=== PATIENT | male | born 1960 | race Caucasian/White ===

== ENCOUNTER → 2017-06-06 09:31 | Outpatient (CLI) | payer OTHER, SELFPAY ==
[2017-06-06 12:27] LABS: Hemoglobin A1c 5.6 % (4.2-6.3)
[2017-06-06 12:39] LABS: ALB/GLOB Ratio 1.1 RATIO (0.9-2.4); AST(SGOT) 22 U/L (15-37); Alanine Aminotransfer ALT/SGPT 45 U/L (16-61); Albumin, Serum 3.9 g/dL (3.2-5.0); Alkaline Phosphatase 50 U/L (45-117); Anion Gap 7 (5-15); BUN 18 mg/dL (7-18); BUN/Creat Ratio 19.3 RATIO (10-20); Calcium,Total 8.9 mg/dL (8.5-10.1); Chloride 108 mmol/L (98-107); Cholesterol 170 mg/dL (200); Creatinine, Serum 0.94 mg/dL (0.70-1.30); EST Glomerular Filtration Rate 89 mL/min (>60); Est Glom Filt Rate - Afr Amer 107 mL/min (>60); Globulin 3.6 g/dL (2.2-4.2); Glucose 96 mg/dL (70-110); High Density Lipoprotein 52 mg/dL; Potassium 4.1 mmol/L (3.5-5.1); Protein, Total 7.5 g/dL (6.4-8.2); Sodium Level 142 mmol/L (136-145); Thyroid Stim Hormone (TSH) 0.99 uIU/mL (0.358-3.74)
[2017-06-06 12:44] LABS: Microalbumin,Random Urine 7.9 mg/L (NO RANGE EST.); Microalbumin:Creatinine Ratio 10.9 mg/g CRE (<30 mg/g CRE)
== END ==
PROVIDERS: Family Provider Family Medicine; PCP Family Medicine; Visit Provider Family Medicine
DX: E88.81 Metabolic syndrome and other insulin resistance (principal); E78.2 Mixed hyperlipidemia; I10 Essential (primary) hypertension
CPT/HCPCS: 36415; 80053; 82043; 82465; 82570; 83036; 83718; 84443

== ENCOUNTER → 2017-12-05 11:11 | Outpatient (CLI) | payer OTHER, SELFPAY ==
--- NOTE | 2017-12-05 11:17 | RAD_ITS ---
STUDY: X-RAY - LUMBAR SPINE REASON FOR EXAM: Male, 57 years old. Low back pain radiating down both legs. TECHNIQUE: 5 view(s) of the lumbar spine were obtained. COMPARISON: Prior comparison studies are not available for review at this time. FINDINGS: There is an exaggerated lumbar lordosis. There is no substantial scoliosis. There is a normal alignment of the vertebrae. There is multilevel endplate spondylosis of the lumbar vertebrae. Normal disc space heights. There is no demonstrated fracture. There is multilevel degenerative arthropathy of the facet joints. There is mild anterolisthesis at L4-5. There is multilevel spondylosis of the thoracic spine. The soft tissue structures are unremarkable. RAD/L/S Spine Min 4 Views IMPRESSION: Multilevel degenerative arthropathy and spondylosis of the lumbar spine. Electronically Signed: Bronwyn Monge MD at 9:46 EDT , Service support ,
== END ==
PROVIDERS: Family Provider Family Medicine; PCP Family Medicine; Visit Provider Family Medicine
DX: M54.9 Dorsalgia, unspecified (principal)
CPT/HCPCS: 72110

== ENCOUNTER 2017-12-18 08:06 | Outpatient (RCR) | payer OTHER, SELFPAY ==
--- NOTE | 2017-12-18 08:53 | HP.PTEVAL ---
Patient's Visit Information BILLY LAGOS is a 57 year old M referred to Physical Therapy by Buddy Lara with a diagnosis of Back pain, arthritis, L4/L5 disc displacement. Date of Evaluation: 12/18/17 Physical Therapist: Thee Mckeon - Visit Plan Frequency: 2x /Week Duration: 4 Weeks Plan: Start with spinal ROM, progress with directional preferrence, once symptoms have reduced progress with neutral spine core strengthening. - Subjective Subjective: Pt. is here today for his initial evaluation with diagnosis of back pain, arthritis, adn L4/L5 disc displacement. Pt. reports having increased pain for ~1 month now. Pt. reports having central low back pain and pain in his R hip that does extend to his calf. He reports no mechanism of injury. Denies N/T, LE weakness or legs buckling. No changes in B/B. Pt. does report occassional LLE pain as well. AMs are worst, initial 3-4 hours, improves as day goes on. 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 Pt. has not trialed any exercises, but has only used advil at this point in time. Pt. is hopeful to reduce symptoms in order to walter complete all work activities without limitations. - Pain lumbar spine Pain Intensity (Out of 10): 2 Pain Intensity Range: 0, 6 RLE Pain Intensity (Out of 10): 3 Pain Intensity Range: 1, 6 - Objective POSTURE: Pt. has overall slouched posture. Pt. had rouned shoulders. Equal iliac crest heights in stance, but anterior tilted pelvis bilaterally. PALPATION: Pt. has mild tenderness at L4/L5 with spring testing, no hypomobility noted. Pt. has tenderness throught R gluteal, greatest at R piriformis, No pain throughout rest of leg. NEURO: all normal, intact. ROM: LUMBAR SPINE- flexion min loss mild increase nW, ext mod loss mild increase NW, SB R min loss increase NW, SB L nil loss NE, rotation R nil loss NE, rotation L ni loss NE. PT. has tight hamstrings bilaterally, tight piriformis bilaterally. MMT- RLE- 5/5 throughout; except hip abd 4/5, ext 4+/5. LLE-5/5 throughout; except hip abd 4/5, ext 4+/5. Core strength- poor. GAIT: Pt. has anterior tilt of his pelvis, normal step length. Pt. does have pain throughout R gluteal region with gait, R stance phase does not increase in symptoms. STAIRS: Reciprocal pattern with 1 HR without increase in symptoms. - Special Tests L/S Slump test left side: Negative L/S Slump test right side: Negative L/S Left Straight Leg Raise: Negative L/S Right Straight Leg Raise: Negative L/S Instability PA Test: Negative Lumbar Standing: Flexion - Mechanical Response: No effect Lumbar Standing: Flexion - Symptoms During Testing: Increases Lumbar Standing: Flexion - Symptoms After Testing: No worse Lumbar Standing: Extension - Mechanical Response: No effect Lumbar Standing: Extension - Symptoms During Testing: Increases Lumbar Standing: Extension - Symptoms After Testing: No worse Lumbar Standing: Right Side Glides - Mechanical Response: No effect Lumbar Standing: Right Side [place] - Symptoms During Testing: Increases Lumbar Standing: Right Side [place] - Symptoms After Testing: No worse Lumbar Standing: Left Side [place] - Mechanical Response: No effect Lumbar Standing: Left Side [place] - Symptoms During Testing: No effect Lumbar Standing: Left Side [place] - Symptoms After Testing: No effect Lumbar Lying: Flexion - Mechanical Response: No effect Lumbar Lying: Flexion - Symptoms During Testing: Decreases Lumbar Lying: Flexion - Symptoms After Testing: Better Lumbar Lying: Extension - Mechanical Response: No effect Lumbar Lying: Extension - Symptoms During Testing: Increases Lumbar Lying: Extension - Symptoms After Testing: Worse Lumbar Static: Slouched Sit - Mechanical Response: No effect Lumbar Static: Slouched Sit - Symptoms During Testing: No effect Lumbar Static: Slouched Sit - Symptoms After Testing: No effect Lumbar Static: Sitting Erect - Mechanical Response: No effect Lumbar Static: Sitting Erect - Symptoms During Testing: Increases Lumbar Static: Sitting Erect - Symptoms After Testing: No worse Lumbar Static:Lying Prone in Extension - Mechanical Response: No effect Lumbar Static: Lying Prone in Extension - Sx During Testing: Increases Lumbar Static: Lying Prone in Extension - Sx After Testing: Worse - Goals Goal 1:: Pt. to be I with HEP. Goal Time Frame: 2-4 Weeks Goal 2:: Pt. to have increased lumbar spine by 25% in all directions without increase in symptoms. Goal Time Frame: 2-4 Weeks Goal 3:: Pt. to have increased HS length by 20deg bilaterally allowing for proper pelvic positioning. Goal Time Frame: 2-4 Weeks Goal 4:: Pt. to have increased core strength by 1/2 grade to increase stability for his lumbar spine. Goal Time Frame: 2-4 Weeks Goal 5:: Pt. to complete his work day with 0-1/10 pain in lumbar spine and RLE. Goal Time Frame: 2-4 Weeks - Rehabilitation Potential Physical Therapy Diagnosis: Pt. has signs and symptoms consistent with low back pain with radiation into his RLE. Pt. appears to have a slight directional preference for flexion this date, but symptoms do suggest more discogenic pathology. Pt. would benefit from PT to increase lumbar spine mobility, increase core strenth and decrease his symptoms. Rehabilitation Potential: Good - Anticipated Interventions Patient/Client Instruction: Educate patient on: Condition, Plan of Care, Risk Factors, Benefits of Fitness Program For the Purpose of:: To improve decision making, To facilitate caregiver knowledge, To improve self management, To prevent re-injury, To improve ability to perform tasks related to life management, To improve tolerance to ADL's Therapeutic Exercise to Include: Strength training, Power training, Postural training, Flexibilty training, Gait and locomotor training, Passive ROM, Active ROM, Dynamic Lumbar Stabilization, [place] Exercises For the Purpose of:: To decrease pain, To increase ROM, To improve nutrient delivery to tissue, To increase oxygenation perfusion, To improve muscle performance and motor function, To improve health of tissue, To decrease soft tissue restriction, To increase flexibility/ROM Manual Therapy Techniques to Include: Mobilization, Passive ROM, Functional dry needling, Soft tissue mobilization For the Purpose of:: To decrease pain, To decrease swelling/inflammation, To increase ROM IF ES: Yes Cryotherapy (ice pack, ice massage): Yes Thermo therapy (hot pack): Yes Ultrasound (thermal/non thermal): Yes For the Purpose of:: To decrease pain, To decrease swelling/inflammation, To increase ROM Thank you for the opportunity to evaluate your patient. For Medicare and Medicare HMO plans, please review the plan of care and approve it. It will need to be FAXED BACK to us at [phone] for Medicare purposes. Please let me know if there are questions or concerns regarding this plan of care. Physician Signature: Date:
--- NOTE | 2018-02-26 13:52 | HP.PT.NRP ---
HP - Discharge Summary (1) - Patient Information BILLY LAGOS was seen in my office for initial evaluation on 12/18/17. The following Plan of Care was established for this patient: Initial Frequency: 2x /Week Initial Duration: 4 Weeks - Anticipated Interventions Patient/Client Instruction: Educate patient on: Condition, Plan of Care, Risk Factors, Benefits of Fitness Program For the Purpose of:: To improve decision making, To facilitate caregiver knowledge, To improve self management, To prevent re-injury, To improve ability to perform tasks related to life management, To improve tolerance to ADL's Therapeutic Exercise to Include: Strength training, Power training, Postural training, Flexibilty training, Gait and locomotor training, Passive ROM, Active ROM, Dynamic Lumbar Stabilization, [place] Exercises For the Purpose of:: To decrease pain, To increase ROM, To improve nutrient delivery to tissue, To increase oxygenation perfusion, To improve muscle performance and motor function, To improve health of tissue, To decrease soft tissue restriction, To increase flexibility/ROM Manual Therapy Techniques to Include: Mobilization, Passive ROM, Functional dry needling, Soft tissue mobilization For the Purpose of:: To decrease pain, To decrease swelling/inflammation, To increase ROM IF ES: Yes Cryotherapy (ice pack, ice massage): Yes Thermo therapy (hot pack): Yes Ultrasound (thermal/non thermal): Yes For the Purpose of:: To decrease pain, To decrease swelling/inflammation, To increase ROM This patient was last seen in our office 12/18/17. Pertinent comments regarding their Physical therapy will appear below: Pt. was seen for his low back pain with radiculopathy. Pt. was evaluated, but has not been see since. Pt. did presents with discogenic symptoms. He has not been seen in ~2 months and will be DC from PT at this point in time. At this point I will be discontinuing this patient from physical therapy. I would be happy to see this patient again in the future if found appropriate by the physician. Thank you! Thee Mckeon
== END 2017-12-18 19:00 | disposition home or self-care (01) ==
LOC: PT 08:06
PROVIDERS: Family Provider Family Medicine; PCP Family Medicine; Visit Provider Family Medicine
DX: M54.9 Dorsalgia, unspecified (principal); M19.90 Unspecified osteoarthritis, unspecified site; M51.26 Other intervertebral disc displacement, lumbar region
CPT/HCPCS: 97161

== ENCOUNTER → 2018-04-16 07:43 | Outpatient (CLI) | payer OTHER, SELFPAY ==
[2016-02-27 10:54] VITALS: BMI 32.3
[2018-04-16 10:41] LABS: Absolute Lymphocyte Count 1.62 X10^3/ul (0.83-4.51); Absolute Neutrophil Count 3.3 X10^3/uL (2.0-7.7); Basophil# 0.02 X10^3/uL; Basophil% 0.3 % (0-1); Eosinophil# 0.25 X10^3/uL; Eosinophils% 4.2 % (0-5); Lymphocyte # 1.62 X10^3/ul (4.0); Lymphocyte % 27.2 % (19-41); Mean Corp Hgb Conc 32.6 g/gl (32-36); Mean Corpuscular Hgb 30.6 pg (27.0-32.0); Mean Corpuscular Volume 93.9 fL (80-94); Mean Platelet Vol. 10.6 fl (6.2-12.0); Monocyte# 0.77 X10^3/uL; Monocyte% 12.9 % (0-10); Neutrophil # 3.28 X10^3/uL (2.7-7.7); Neutrophil % 55.1 % (47-70); Platelet Count 200 K/mm3 (150-450); RBC Distribution Width CV 12.3 % (11.6-14.6); RBC Distribution Width SD 41.9 fl (35.1-43.9)
[2018-04-16 10:49] LABS: POSITIVE COUNT NO; POSITIVE DIFFERENTIAL NO; POSITIVE MORPHOLOGY NO
[2018-04-16 11:00] LABS: AST(SGOT) 29 U/L (15-37); Alanine Aminotransfer ALT/SGPT 47 U/L (16-61); Albumin, Serum 3.6 g/dL (3.2-5.0); Alkaline Phosphatase 51 U/L (45-117); Anion Gap 9 (5-15); BUN 11 mg/dL (7-18); Calcium,Total 8.8 mg/dL (8.5-10.1); Chloride 104 mmol/L (98-107); Cholesterol 180 mg/dL (200); Creatinine, Serum 0.92 mg/dL (0.70-1.30); EST Glomerular Filtration Rate 90 mL/min (>60); Est Glom Filt Rate - Afr Amer 109 mL/min (>60); Globulin 3.5 g/dL (2.2-4.2); Glucose 96 mg/dL (74-106); High Density Lipoprotein 39 mg/dL; Protein, Total 7.1 g/dL (6.4-8.2); Sodium Level 140 mmol/L (136-145); Thyroid Stim Hormone (TSH) 1.07 uIU/mL (0.358-3.74); Triglycerides 172 mg/dL; Very Low Density Lipoprotein 34 mg/dL (5-40)
[2018-04-16 11:32] LABS: Hemoglobin A1c 6.5 % (4.2-6.3)
--- OUTSIDE RECORDS SUMMARY | 2018-06-02 00:53 | XMS RPT_ITS ---
:1960 Author Organization OHIP Care Team Providers Name Role Phone Buddy Lara Attending Unavailable Lara, Buddy Referring Unavailable Lara, Buddy Primary Care Unavailable Lara, Buddy Attending Unavailable Lara, Buddy Primary Care Unavailable Lara, Buddy Attending Unavailable Lara, Buddy Referring Unavailable Lara, Buddy Primary Care Unavailable Lara, Buddy Attending Unavailable Lara, Buddy Referring Unavailable Lara, Buddy Primary Care Unavailable PROBLEMS PROBLEMS DATE TYPE CONDITION / CODE ATTENDING STATUS SOURCE 02/27/2018 Unknown M54.9 - LaraBuddy Active [place] [facility], Community unspecified / Hospital M54.9(ICD-10) Repository PROCEDURES PROCEDURES No Procedure Records FoundRESULTS RESULTS CBC W/DIFF, AUTOMATED Collected: 04/16/2018 Status: F Source: [place] 7:48 AM [facility] Order Comment: Order Date: 12/05/17 Order Info: 0184-1 - CBCD TYPE CODE TESTS RESULT OUT OF RANGE REFERENCE UNITS LAB L100.1000 4.4-11.0 K/mm3 Normal WBC 6.0 LAB L100.1200 4.6-6.2 M/mm3 Normal RBC 4.90 LAB L100.1300 13.0-16.5 g/dl Normal HGB 15.0 LAB L100.1400 40-54 % Normal HCT 46.0 LAB L100.1500 80-94 fL Normal MCV 93.9 LAB L100.1600 27.0-32.0 pg Normal MCH 30.6 LAB L100.1700 32-36 g/gl Normal MCHC 32.6 LAB L100.1810 11.6-14.6 % Normal RDW CV 12.3 LAB L100.1820 35.1-43.9 fl Normal RDW SD 41.9 LAB L100.1900 150-450 K/mm3 Normal PLT 200 LAB L100.2000 6.2-12.0 fl Normal MPV 10.6 LAB L100.2100 47-70 % Normal NEUT% 55.1 LAB L100.2200 19-41 % Normal LY% 27.2 LAB L100.2300 0-10 % High MONO% 12.9 LAB L100.2400 0-5 % Normal EO% 4.2 LAB L100.2500 0-1 % Normal BASO% 0.3 LAB L100.2550 0.0-0.9 % Normal IM GRAN % 0.300 Result Comment: IG% - Immature Granulocytes (promyelocytes, myelocytes and metamyelocytes) > 1% indicates that a LEFT SHIFT is Present. LAB L100.2620 2.0-7.7 X10 3/uL Normal Absolute Neut 3.3 LAB L100.2720 0.83-4.51 X10 3/ul Normal Absolute Lymph 1.62 Performed By: #### L100.0100, L500.4050, L500.4100, L501.9520, L501.9985 #### [facility] [address] [place], [place], [address] COMPREHENSIVE METABOLIC Collected: 04/16/2018 Status: F Source: MOOSE CHOUDHARY 7:48 AM [facility] Order Comment: Order Date: 12/05/17 Order Info: 0786-1 - CMP Order Info: [id number] - LIPID Order Info: 3016-3 - TSH TYPE CODE TESTS RESULT OUT OF RANGE REFERENCE UNITS LAB L501.0100 74-106 mg/dL Normal GLU 96 Result Comment: Please note revised GLUCOSE reference range effective 2017. LAB L501.1000 7-18 mg/dL Normal BUN 11 LAB L501.1100 0.70-1.30 mg/dL Normal CREAT,SERUM 0.92 Result Comment: The validity of the calculated GFR AND GFRAA in patients over 70 years has not been determined. Clinical correlation is essential. LAB L501.1110 >60 mL/min Normal EST GFR 90 Result Comment: Non- GFR Calc LAB L501.1115 >60 mL/min Normal EST GFR - AA 109 Result Comment: GFR Calc LAB L501.1300 10-20 RATIO Normal BUN/CRE 12.0 LAB L501.1500 6.4-8.2 g/dL T Normal PROT 7.1 LAB L501.1800 3.2-5.0 g/dL Normal ALB 3.6 LAB L501.1950 2.2-4.2 g/dL Normal GLOB 3.5 LAB L501.2000 0.9-2.4 RATIO Normal A/G 1.0 LAB L501.2200 8.5-10.1 mg/dL CA Normal 8.8 LAB L501.4100 15-37 U/L Normal AST 29 LAB L501.4305 45-117 U/L Normal ALK P 51 LAB L501.4405 16-61 U/L Normal ALT 47 LAB L501.4600 0.20-1.00 mg/dL T Normal BILI 0.40 LAB L501.5300 136-145 mmol/L NA Normal 140 LAB L501.5600 3.5-5.1 mmol/L K Normal 4.0 LAB L501.5900 98-107 mmol/L CL Normal 104 LAB L501.6100 21.0-32.0 mmol/L Normal CO2 27.0 LAB L501.6200 5-15 Normal GAP 9 Performed By: #### L100.0100, L500.4050, L500.4100, L501.9520, L501.9985 #### [facility] [address] [place], [place], [id number] LIPID PROFILE Collected: 04/16/2018 Status: F Source: [place]OO[place] 7:48 AM [facility] Order Comment: Order Date: 12/05/17 Order Info: 0786-1 - CMP Order Info: [id number] - LIPID Order Info: 3016-3 - TSH TYPE CODE TESTS RESULT OUT OF RANGE REFERENCE UNITS LAB L501.4900 200 mg/dL Normal CHOL 180 Result Comment: <200 mg/dL Desirable 200-240 mg/dL Borderline >240 mg/dL High Risk LAB L501.5000 mg/dL Normal TRIG 172 Result Comment: The drugs N-Acetylcysteine and Metamizole may falsely depress this assay. Serum Triglycerides Reference Interval Normal <150 mg/dL Borderline high 150 - 199 mg/dL High 200 - 499 mg/dL Very High > or = 500 mg/dL LAB L501.6400 mg/dL Low HDL 39 Result Comment: The drugs N-Acetylcysteine and Metamizole may falsely depress this assay. Reference Range HDL <40 mg/dL Low HDL Cholesterol HDL >or= 60 mg/dL High HDL Cholesterol LAB L501.6500 0-130 mg/dL Normal LDL 107 LAB L501.6600 5-40 mg/dL Normal VLDL 34 Performed By: #### L100.0100, L500.4050, L500.4100, L501.9520, L501.9985 #### [facility] [address] [place], [place], [id number] THYROID STIM HORMONE Collected: 04/16/2018 Status: F Source: MOOSE (TSH) 7:48 AM [facility] Order Comment: Order Date: 12/05/17 Order Info: 0786-1 - CMP Order Info: [id number] - LIPID Order Info: 3016-3 - TSH TYPE CODE TESTS RESULT OUT OF RANGE REFERENCE UNITS LAB L501.9520 0.358-3.74 uIU/mL Normal TSH 1.07 Performed By: #### L100.0100, L500.4050, L500.4100, L501.9520, L501.9985 #### [facility] [address] [place], [place], [address] HEMOGLOBIN A1C Collected: 04/16/2018 Status: F Source: [place]OO[place] 7:48 AM [facility] Order Comment: Order Date: 12/05/17 Order Info: 4548-4 - A1C TYPE CODE TESTS RESULT OUT OF RANGE REFERENCE UNITS LAB L501.9985 4.2-6.3 % High HGB A1C 6.5 Performed By: #### L100.0100, L500.4050, L500.4100, L501.9520, L501.9985 #### [facility] [address] [place], [address] INITAL EVALUATION (1) Observed: 12/18/2017 Status: F Source: MOOSE - PT 8:54 AM [facility] Physical Therapy [facility] [address] [place], [place] [address] Fax REHABILITATION SERVICES INITIAL EVALUATION MR#: [id number] Acct: [id number] Name: VÍCTOR LAGOS Rep #: [id number] : 1960 57 From: Thee Mckeon DPT Referring Dr.: Buddy Lara MD Status: REG RCR Insurance: [employer] [facility] SELF PAY INSURANCE Patient's Visit Information VÍCTOR LAGOS is a 57 year old M referred to Physical Therapy by Buddy Lara with a diagnosis of Back pain, arthritis, L4/L5 disc displacement. Date of Evaluation: 12/18/17 Physical Therapist: Thee Mckeon - Visit Plan Frequency: 2x /Week Duration: 4 Weeks Plan: Start with spinal ROM, progress with directional preferrence, once symptoms have reduced progress with neutral spine core strengthening. - Subjective Subjective: Pt. is here today for his initial evaluation with diagnosis of back pain, arthritis, adn L4/L5 disc displacement. Pt. reports having increased pain for 1 month now. Pt. reports having central low back pain and pain in his R hip that does extend to his calf. He reports no mechanism of injury. Denies N/T, LE weakness or legs buckling. No changes in B/B. Pt. does report occassional LLE pain as well. AMs are worst, initial 3-4 hours, improves as day goes on. 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 Pt. has not trialed any exercises, but has only used advil at this point in time. Pt. is hopeful to reduce symptoms in order to walter complete all work activities without limitations. - Pain lumbar spine Pain Intensity (Out of 10): 2 Pain Intensity Range: 0, 6 RLE Pain Intensity (Out of 10): 3 Pain Intensity Range: 1, 6 - Objective POSTURE: Pt. has overall slouched posture. Pt. had rouned shoulders. Equal iliac crest heights in stance, but anterior tilted pelvis bilaterally. PALPATION: Pt. has mild tenderness at L4/L5 with spring testing, no hypomobility noted. Pt. has tenderness throught R gluteal, greatest at R piriformis, No pain throughout rest of leg. NEURO: all normal, intact. ROM: LUMBAR SPINE- flexion min loss mild increase nW, ext mod loss mild increase NW, SB R min loss increase NW, SB L nil loss NE, rotation R nil loss NE, rotation L ni loss NE. PT. has tight hamstrings bilaterally, tight piriformis bilaterally. MMT- RLE- 5/5 throughout; except hip abd 4/5, ext 4+/5. LLE-5/5 throughout; except hip abd 4/5, ext 4+/5. Core strength- poor. GAIT: Pt. has anterior tilt of his pelvis, normal step length. Pt. does have pain throughout R gluteal region with gait, R stance phase does not increase in symptoms. STAIRS: Reciprocal pattern with 1 HR without increase in symptoms. - Special Tests L/S Slump test left side: Negative L/S Slump test right side: Negative L/S Left Straight Leg Raise: Negative L/S Right Straight Leg Raise: Negative L/S Instability PA Test: Negative Lumbar Standing: Flexion - Mechanical Response: No effect Lumbar Standing: Flexion - Symptoms During Testing: Increases Lumbar Standing: Flexion - Symptoms After Testing: No worse Lumbar Standing: Extension - Mechanical Response: No effect Lumbar Standing: Extension - Symptoms During Testing: Increases Lumbar Standing: Extension - Symptoms After Testing: No worse Lumbar Standing: Right Side Glides - Mechanical Response: No effect Lumbar Standing: Right Side Wayan - Symptoms During Testing: Increases Lumbar Standing: Right Side Wayan - Symptoms After Testing: No worse Lumbar Standing: Left Side Wayan - Mechanical Response: No effect Lumbar Standing: Left Side Wayan - Symptoms During Testing: No effect Lumbar Standing: Left Side Wayan - Symptoms After Testing: No effect Lumbar Lying: Flexion - Mechanical Response: No effect Lumbar Lying: Flexion - Symptoms During Testing: Decreases Lumbar Lying: Flexion - Symptoms After Testing: Better Lumbar Lying: Extension - Mechanical Response: No effect Lumbar Lying: Extension - Symptoms During Testing: Increases Lumbar Lying: Extension - Symptoms After Testing: Worse Lumbar Static: Slouched Sit - Mechanical Response: No effect Lumbar Static: Slouched Sit - Symptoms During Testing: No effect Lumbar Static: Slouched Sit - Symptoms After Testing: No effect Lumbar Static: Sitting Erect - Mechanical Response: No effect Lumbar Static: Sitting Erect - Symptoms During Testing: Increases Lumbar Static: Sitting Erect - Symptoms After Testing: No worse Lumbar Static:Lying Prone in Extension - Mechanical Response: No effect Lumbar Static: Lying Prone in Extension - Sx During Testing: Increases Lumbar Static: Lying Prone in Extension - Sx After Testing: Worse - Goals Goal 1:: Pt. to be I with HEP. Goal Time Frame: 2-4 Weeks Goal 2:: Pt. to have increased lumbar spine by 25% in all directions without increase in symptoms. Goal Time Frame: 2-4 Weeks Goal 3:: Pt. to have increased HS length by 20deg bilaterally allowing for proper pelvic positioning. Goal Time Frame: 2-4 Weeks Goal 4:: Pt. to have increased core strength by 1/2 grade to increase stability for his lumbar spine. Goal Time Frame: 2-4 Weeks Goal 5:: Pt. to complete his work day with 0-1/10 pain in lumbar spine and RLE. Goal Time Frame: 2-4 Weeks - Rehabilitation Potential Physical Therapy Diagnosis: Pt. has signs and symptoms consistent with low back pain with radiation into his RLE. Pt. appears to have a slight directional preference for flexion this date, but symptoms do suggest more discogenic pathology. Pt. would benefit from PT to increase lumbar spine mobility, increase core strenth and decrease his symptoms. Rehabilitation Potential: Good - Anticipated Interventions Patient/Client Instruction: Educate patient on: Condition, Plan of Care, Risk Factors, Benefits of Fitness Program For the Purpose of:: To improve decision making, To facilitate caregiver knowledge, To improve self management, To prevent re-injury, To improve ability to perform tasks related to life management, To improve tolerance to ADL's Therapeutic Exercise to Include: Strength training, Power training, Postural training, Flexibilty training, Gait and locomotor training, Passive ROM, Active ROM, Dynamic Lumbar Stabilization, [place] Exercises For the Purpose of:: To decrease pain, To increase ROM, To improve nutrient delivery to tissue, To increase oxygenation perfusion, To improve muscle performance and motor function, To improve health of tissue, To decrease soft tissue restriction, To increase flexibility/ROM Manual Therapy Techniques to Include: Mobilization, Passive ROM, Functional dry needling, Soft tissue mobilization For the Purpose of:: To decrease pain, To decrease swelling/inflammation, To increase ROM IF ES: Yes Cryotherapy (ice pack, ice massage): Yes Thermo therapy (hot pack): Yes Ultrasound (thermal/non thermal): Yes For the Purpose of:: To decrease pain, To decrease swelling/inflammation, To increase ROM Thank you for the opportunity to evaluate your patient. For Medicare and Medicare HMO plans, please review the plan of care and approve it. It will need to be FAXED BACK to us at [phone] for Medicare purposes. Please let me know if there are questions or concerns regarding this plan of care. Physician Signature: Date: <Electronically signed by Thee Mckeon DPT> 12/18/17 0854 CC: Buddy Lara MD CLS Signed For Medicare only, by signing this I certify the plan of care. Physicians Signature Date L/S SPINE MIN 4 Observed: 12/05/2017 Status: F Source: MOOSE VIEWS 11:18 AM [facility] Imaging Services [address] [place] [address] L/S Spine Min 4 Views MR#: [id number] Acct: [id number] Name: VÍCTOR LAGOS Rep #: [id number] : 1960 M 57 From: Bronwyn Monge MD PCP: Buddy Lara MD Status: REG CLI Study: L/S Spine Min 4 Views Date of Exam: 12/05/17 Exam# [id number] Ordering Dr: Buddy Lara MD STUDY: X-RAY - LUMBAR SPINE REASON FOR EXAM: Male, 57 years old. Low back pain radiating down both legs. TECHNIQUE: 5 view(s) of the lumbar spine were obtained. COMPARISON: Prior comparison studies are not available for review at this time. FINDINGS: There is an exaggerated lumbar lordosis. There is no substantial scoliosis. There is a normal alignment of the vertebrae. There is multilevel endplate spondylosis of the lumbar vertebrae. Normal disc space heights. There is no demonstrated fracture. There is multilevel degenerative arthropathy of the facet joints. There is mild anterolisthesis at L4-5. There is multilevel spondylosis of the thoracic spine. The soft tissue structures are unremarkable. RAD/L/S Spine Min 4 Views IMPRESSION: Multilevel degenerative arthropathy and spondylosis of the lumbar spine. Electronically Signed: Bronwyn Monge MD at 9:46 EDT , Service support , CC: Buddy Lara MD Work Adjustment Instructor: Signed HEMOGLOBIN A1C Collected: 06/06/2017 Status: F Source: [place] 9:32 AM [facility] Order Comment: Order Date: 06/06/17 Order Info: 4548-4 - A1C TYPE CODE TESTS RESULT OUT OF RANGE REFERENCE UNITS LAB L501.9985 4.2-6.3 % Normal HGB A1C 5.6 Performed By: #### L501.9985, L500.4050, L501.4900, L501.6400, L501.9520, L502.0250 #### [facility] [address] [place], [address] COMPREHENSIVE METABOLIC Collected: 06/06/2017 Status: F Source: MOOSE PROFIL 9:32 AM [facility] Order Comment: Order Date: 06/06/17 Order Info: 0786-1 - CMP Order Info: 3-3 - CHOL Order Info: 9 - HDL Order Info: 3016-3 - TSH TYPE CODE TESTS RESULT OUT OF RANGE REFERENCE UNITS LAB L501.0100 70-110 mg/dL Normal GLU 96 LAB L501.1000 7-18 mg/dL Normal BUN 18 LAB L501.1100 0.70-1.30 mg/dL Normal 0.94 CREAT,SERUM Result Comment: The validity of the calculated GFR AND GFRAA in patients over 70 years has not been determined. Clinical correlation is essential. LAB L501.1110 >60 mL/min Normal EST GFR 89 Result Comment: Non- GFR Calc LAB L501.1115 >60 mL/min Normal EST GFR - AA 107 Result Comment: GFR Calc LAB L501.1300 10-20 RATIO Normal BUN/CRE 19.3 LAB L501.1500 6.4-8.2 g/dL T Normal PROT 7.5 LAB L501.1800 3.2-5.0 g/dL Normal ALB 3.9 LAB L501.1950 2.2-4.2 g/dL Normal GLOB 3.6 LAB L501.2000 0.9-2.4 RATIO Normal A/G 1.1 LAB L501.2200 8.5-10.1 mg/dL CA Normal 8.9 LAB L501.4100 15-37 U/L Normal AST 22 LAB L501.4305 45-117 U/L Normal ALK P 50 LAB L501.4405 16-61 U/L Normal ALT 45 Result Comment: Please note revised ALT reference range effective 2017. LAB L501.4600 0.20-1.00 mg/dL Normal T BILI 0.30 LAB L501.5300 136-145 mmol/L Normal NA 142 LAB L501.5600 3.5-5.1 mmol/L Normal K 4.1 LAB L501.5900 98-107 mmol/L High CL 108 LAB L501.6100 21.0-32.0 mmol/L Normal CO2 27.0 LAB L501.6200 5-15 Normal GAP 7 Performed By: #### L501.9985, L500.4050, L501.4900, L501.6400, L501.9520, L502.0250 #### [facility] [address] [place], [place], [address] CHOLESTEROL Collected: 06/06/2017 Status: F Source: MOOSE 9:32 AM [facility] Order Comment: Order Date: 06/06/17 Order Info: 785-1 - CMP Order Info: 2092-07 - CHOL Order Info: 2085-01 - HDL Order Info: 3015-07 - TSH TYPE CODE TESTS RESULT OUT OF RANGE REFERENCE UNITS LAB L501.4900 200 mg/dL Normal CHOL 170 Result Comment: <200 mg/dL Desirable 200-240 mg/dL Borderline >240 mg/dL High Risk Performed By: #### L501.9985, L500.4050, L501.4900, L501.6400, L501.9520, L502.0250 #### [facility] [address] [place], [place], [address] HIGH DENSITY Collected: 06/06/2017 Status: F Source: MOOSE LIPOPROTEIN 9:32 AM [facility] Order Comment: Order Date: 06/06/17 Order Info: 785-05 - CMP Order Info: 2092-07 - CHOL Order Info: 2085-01 - HDL Order Info: 3015-07 - TSH TYPE CODE TESTS RESULT OUT OF RANGE REFERENCE UNITS LAB L501.6400 mg/dL Normal HDL 52 Result Comment: The drugs N-Acetylcysteine and Metamizole may falsely depress this assay. Reference Range HDL <40 mg/dL Low HDL Cholesterol HDL >or= 60 mg/dL High HDL Cholesterol Performed By: #### L501.9985, L500.4050, L501.4900, L501.6400, L501.9520, L502.0250 #### [facility] [address] [place], [address] THYROID STIM HORMONE Collected: 06/06/2017 Status: F Source: MOOSE (TSH) 9:32 AM [facility] Order Comment: Order Date: 06/06/17 Order Info: 785-1 - CMP Order Info: 2092-07 - CHOL Order Info: 2085-01 - HDL Order Info: 3016-3 - TSH TYPE CODE TESTS RESULT OUT OF RANGE REFERENCE UNITS LAB L501.9520 0.358-3.74 uIU/mL Normal TSH 0.99 Performed By: #### L501.9985, L500.4050, L501.4900, L501.6400, L501.9520, L502.0250 #### [facility] [address] [place], [place], [address] MICROALB:CREAT Collected: 06/06/2017 Status: F [facility] 9:32 AM [facility] Order Comment: Order Date: 06/06/17 Order Info: 0779-1 - MIACRE TYPE CODE TESTS RESULT OUT OF RANGE REFERENCE UNITS LAB L501.1200 NO RANGE EST. mg/dL Normal UR CREAT 72.80 LAB L502.0500 NO RANGE EST. mg/L Normal 7.9 MICROALBUMIN ,UR LAB L502.0600 <30 mg/g CRE mg/g CRE Normal 10.9 MALB:CREAT Performed By: #### L501.9985, L500.4050, L501.4900, L501.6400, L501.9520, L502.0250 #### [facility] [address] [place], [address] ALLERGIES ALLERGIES DATE TYPE / CODE NAME / CODE REACTION SEVERITY SOURCE 02/21/2016 Drug No Known Unknown [facility] Allergy/4160 Allergies/F00 Hospital 33936(SNOMED [id number](RXNOR Repository CT) M) ENCOUNTERS ENCOUNTERS ADMIT/DISCHARGE ACCOUNT ADMITTING ENCOUNTER LOCATION SOURCE NUMBER [facility] 04/16/2018 [id number] Ambulatory [facility] ing:MTLAB Repository 12/18/2017/ [id number] Ambulatory [address] ing:PT Repository 12/05/2017 [id number] Ambulatory [address] ing:MTRAD Repository 06/06/2017 [id number] Ambulatory [address] ing:MFPLAB Repository PAYERS PAYERS ENCOUNTER GUARANTOR PAYER SUBSCRIBER SOURCE 04/16/2018 VÍCTOR L Primary VÍCTOR L [place] [id number] Insurance:MEDICAL THOMASDOB: [facility] [id number] Number: Repository [id number]: 330 [id number] [phone] (HP) Date:[id number] [address]WL: 04/16/2018 Secondary NOT GIVENUNK [place] Insurance:SELF PAY [facility] Number: Effective Repository Date:2018-04-16 12/18/2017 Víctor L Primary Víctor L Gay [id number] Insurance:MEDICAL ThomasDOB: [place] [address]-03-[address], [place] Number: Repository [address]Trm: 330 [id number] [phone] (HP) Date:[id number] [place] [id number]: 12/18/2017 Secondary NOT GIVENUNK [place] Insurance:SELF PAY [facility] Number: Effective Repository Date:2017-12-09 12/05/2017 Víctor L Primary Víctor L Gay [id number] Insurance:MEDICAL ThomasDOB: [place] [address]-03-[address], [place] Number: Repository [id number]: 330 [id number] [phone] () Date:[id number] [address]YE: 12/05/2017 Secondary NOT GIVENUNK Gay Insurance:SELF PAY [facility] Number: Effective Repository Date:2017-12-05 06/06/2017 Víctor L Primary Víctor L Gay [id number] Insurance:MEDICAL ThomasDOB: [place] [address] [place] [address] Number: Repository [id number]: 330 [id number] [phone] (HP) Date:[id number] [address]KR: 06/06/2017 Secondary NOT GIVENUNK [place] Insurance[facility]LF [facility]: Effective Repository Date:2017-06-06
== END ==
PROVIDERS: Family Provider Family Medicine; PCP Family Medicine; Referring Provider Family Medicine; Visit Provider Family Medicine
DX: E88.81 Metabolic syndrome and other insulin resistance (principal); Z72.0 Tobacco use
CPT/HCPCS: 36415; 80053; 80061; 83036; 84443; 85025

== ENCOUNTER → 2019-07-15 08:04 | Outpatient (CLI) | payer OTHER, SELFPAY ==
[2019-07-15 10:26] LABS: ALB/GLOB Ratio 1.2 RATIO (0.9-2.4); AST(SGOT) 24 U/L (15-37); Alanine Aminotransfer ALT/SGPT 50 U/L (16-61); Albumin, Serum 3.8 g/dL (3.2-5.0); Alkaline Phosphatase 55 U/L (45-117); Anion Gap 8 (5-15); BUN 15 mg/dL (7-18); BUN/Creat Ratio 19.2 RATIO (10-20); Calcium,Total 9.1 mg/dL (8.5-10.1); Chloride 104 mmol/L (98-107); Cholesterol 180 mg/dL (200); Creatinine, Serum 0.78 mg/dL (0.70-1.30); EST Glomerular Filtration Rate 108 mL/min (>60); Est Glom Filt Rate - Afr Amer 130 mL/min (>60); Globulin 3.1 g/dL (2.2-4.2); Glucose 107 mg/dL (74-106); High Density Lipoprotein 31 mg/dL; Protein, Total 6.9 g/dL (6.4-8.2); Sodium Level 139 mmol/L (136-145); Triglycerides 305 mg/dL; Very Low Density Lipoprotein 61 mg/dL (5-40)
[2019-07-15 10:37] LABS: Microalbumin,Random Urine < 5.0 mg/L (NO RANGE EST.)
== END ==
PROVIDERS: PCP Family Medicine; Referring Provider Family Medicine; Visit Provider Family Medicine
DX: E88.81 Metabolic syndrome and other insulin resistance (principal); I10 Essential (primary) hypertension
CPT/HCPCS: 36415; 80053; 80061; 82043; 82570

== ENCOUNTER → 2020-02-10 07:16 | Outpatient (CLI) | payer OTHER, SELFPAY ==
[2016-02-27 10:54] VITALS: BMI 32.3
[2020-02-10 09:57] LABS: Absolute Lymphocyte Count 2.15 X10^3/uL (0.83-4.51); Absolute Neutrophil Count 3.7 X10^3/uL (2.0-7.7); Basophil# 0.03 X10^3/uL; Basophil% 0.4 % (0-1); Eosinophil# 0.29 X10^3/uL; Hematocrit 48.8 % (40-54); Hemoglobin 15.9 g/dL (13.0-16.5); Lymphocyte # 2.15 X10^3/ul (4.0); Lymphocyte % 29.7 % (19-41); Mean Corp Hgb Conc 32.6 g/dL (32-36); Mean Corpuscular Hgb 31.2 pg (27.0-32.0); Mean Corpuscular Volume 95.9 fL (80-94); Monocyte# 1.02 X10^3/uL; Monocyte% 14.1 % (0-10); NRBC Flagged by Analyzer 0 % (0-5); Neutrophil % 51.2 % (47-70); Platelet Count 179 K/mm3 (150-450); RBC Distribution Width CV 12.4 % (11.6-14.6); RBC Distribution Width SD 43.9 fl (35.1-43.9); Red Blood Count 5.09 M/mm3 (4.6-6.2); White Blood Count 7.2 K/mm3 (4.4-11.0)
[2020-02-10 10:11] LABS: Vitamin D,25 Hydroxy 28.2 ng/mL
[2020-02-10 10:14] LABS: Hemoglobin A1c 6.1 % (3.8-5.6)
[2020-02-10 10:19] LABS: ALB/GLOB Ratio 1.1 RATIO (0.9-2.4); AST(SGOT) 24 U/L (15-37); Alanine Aminotransfer ALT/SGPT 48 U/L (16-61); Albumin, Serum 3.8 g/dL (3.2-5.0); Alkaline Phosphatase 48 U/L (45-117); Anion Gap 7 (5-15); BUN 14 mg/dL (7-18); BUN/Creat Ratio 16.1 RATIO (10-20); Chloride 103 mmol/L (98-107); Cholesterol 172 mg/dL (200); Creatinine, Serum 0.87 mg/dL (0.70-1.30); EST Glomerular Filtration Rate 96 mL/min (>60); Est Glom Filt Rate - Afr Amer 116 mL/min (>60); Ferritin 271 ng/mL (26-388); Globulin 3.5 g/dL (2.2-4.2); Glucose 103 mg/dL (74-106); High Density Lipoprotein 45 mg/dL; Iron 121 ug/dL (65-175); Iron Binding Capacity,Total 323 ug/dL (250-450); Potassium 3.7 mmol/L (3.5-5.1); Protein, Total 7.3 g/dL (6.4-8.2); Sodium Level 137 mmol/L (136-145); Triglycerides 153 mg/dL; Very Low Density Lipoprotein 31 mg/dL (5-40)
[2020-02-10 10:36] LABS: Microalbumin,Random Urine < 5.0 mg/L (NO RANGE EST.)
== END ==
PROVIDERS: PCP Family Medicine; Referring Provider Family Medicine; Visit Provider Family Medicine
DX: E11.9 Type 2 diabetes mellitus without complications (principal); M25.50 Pain in unspecified joint
CPT/HCPCS: 36415; 80053; 80061; 82043; 82306; 82570; 82728; 83036; 83540; 83550; 85025

== ENCOUNTER → 2020-10-07 09:49 | Outpatient (CLI) | payer OTHER, SELFPAY ==
[2016-02-27 10:54] VITALS: BMI 32.3
--- NOTE | 2020-10-07 10:04 | RAD_ITS ---
STUDY: X-RAY - LUMBOSACRAL SPINE REASON FOR EXAM: Male, 60 years old. RLE radiculolpathy w/o weakness TECHNIQUE: 7 view(s) of the lumbosacral spine were obtained. COMPARISON: 12/05/2017 FINDINGS: Normal lumbar lordosis. There is no substantial scoliosis. 2 mm of anterolisthesis of L4 on L5 which increases to 5 mm on the flexion and extension views consistent with instability. Normal vertebral bodies and endplates. Focal disc space narrowing and osteophyte formation at L1/L2 consistent with degenerative disc disease. Normal bilateral sacral ala, sacroiliac joints, and visualized sacrum. Normal visualized soft tissue structures. RAD/L/S Spine w Bend Min 6 Vw IMPRESSION: Degenerative disc disease with instability at L4/L5 as described above. Electronically Signed: Iraj Meadows MD at 11:42 EDT Tel , Service support ,
--- NOTE | 2020-10-07 10:04 | CT_ITS ---
STUDY: LOW DOSE CT LUNG CANCER SCREENING REASON FOR EXAM: Male, 60 years old. TOBACCO ABUSE RADIATION DOSAGE (If Supplied By Facility): CTDIvol = ( 4.02 ) mGy, DLP = ( 145.97 ) mGycm TECHNIQUE: No contrast was administered. Low dose technique was utilized (average mAS-38 and kVp 120). 1.25 mm axial source images with a slice interval of 1.25-mm were reconstructed in lung windows. 2.5 mm axial source images with a slice interval of 2.5-mm were reconstructed in lung windows. 5.0 mm axial source images with a slice interval of 5.0-mm were reconstructed in soft tissue windows. Nodule measured using lung windows on PACS and/or independent workstation with automated measurement of minimum and maximum diameter. Nodule measurement reported as average diameter rounded to the nearest whole number. Growth is defined as an increase ins size of greater than 1.5 mm. COMPARISON: None. NODULES: Total lung nodules (excluding granulomas): 0 Emphysema: Minor upper lobe predominant Endobronchial lesion: None Aorta: Nondilated. Coronary arteries: Mild coronary artery atherosclerosis Heart: Normal size. Mitral valve calcifications. Pulmonary artery: Unremarkable for unopacified technique Mediastinal nodes: No mediastinal adenopathy. Other chest and abdominal findings: None significant CT/Low Dose CT Lung Screening IMPRESSION: Lung-RADS category 1 - Continue annual screening with LDCT in 12 months. IMPORTANT NOTES FOR USE: ACR Lung-RADS Version 1.1 Assessment Categories Release Date: 2018 Category: Coded 0-4 bases on nodule(s) with highest degree of suspicion. Negative screen is defined as categories 1 and 2; a positive screen is defined as categories 3 and 4. Category 3 and 4A nodules that are unchanged on interval CT should be coded as category 2, and individuals returned to screening in 12 months. Category 4X: Category 3 or 4 nodules with additional imaging findings that increase the suspicion of lung cancer, such as spiculation, GGN that doubles in size in 1 year, enlarged lymph notes, etc. Category Modifiers: S (significant finding unrelated to lung cancer) Electronically Signed: Robert Gleason MD ([place]) at 17:48 EDT , Service support ,
== END ==
PROVIDERS: PCP Family Medicine; Referring Provider Family Medicine; Visit Provider Family Medicine
DX: M54.9 Dorsalgia, unspecified (principal); Z72.0 Tobacco use
CPT/HCPCS: 71271; 72114

== ENCOUNTER → 2020-10-26 06:35 | Outpatient (CLI) | payer OTHER, SELFPAY ==
[2020-10-20 09:05] VITALS: BMI 32.3
--- NOTE | 2020-10-26 06:36 | MRI_ITS ---
STUDY: MRI LUMBAR SPINE WITHOUT CONTRAST REASON FOR EXAM: Male, 60 years old. pain, spondylolisthesis TECHNIQUE: Standardized fat and water weighted pulse sequences were obtained in the sagittal and axial planes. COMPARISON: None FINDINGS: The vertebral bodies are of normal height and alignment with normal bone marrow signal intensity. There is narrowing and dehydration of the disc at the level of T12-L1. There is also narrowing of the disc at L1-2 with diffuse bulge of the annulus fibrosus. The disc at the level of L2-3 dehydrated but maintained so is the disc at the level of L3-4. At the level of L4-5 the disc is dehydrated but show diffuse bulge of the annulus fibrosus associated with marked spinal stenosis. The spinal canal measures at this level 6 mm. At the level of L5-S1 the disc is maintained but dehydrated no protrusion or extrusion at this level. There is mild hypertrophic changes involving the apophyseal joints at L4-5 and L5-S1. MRI/Spine Lumbar (Routine) IMPRESSION: Dehydrated and narrowed disc at the T12-L1 and L1-2. There is marked spinal stenosis at the level of L4-5 Electronically Signed: Bill Shi, at 10:58 EDT Tel , Service support ,
== END ==
PROVIDERS: PCP Family Medicine; Referring Provider Orthopaedic Surgery; Visit Provider Orthopaedic Surgery
DX: M43.10 Spondylolisthesis, site unspecified (principal)
CPT/HCPCS: 72148

== ENCOUNTER 2020-10-27 07:30 | Outpatient (RCR) | payer OTHER, SELFPAY ==
--- NOTE | 2020-10-19 15:00 | HP.PTEVAL_ITS ---
Patient's Visit Information BILLY LAGOS is a 60 year old M referred to Physical Therapy by Dr. Buddy Lara MD with a diagnosis of BACK PAIN. Date of Evaluation: 10/19/20 Physical Therapist: Apollo Hensley PT, Cert MDT, OCS - Visit Plan Frequency: 2x /Week Duration: 4 Weeks Plan: PT INTERVETIONS DLS,LUMBAR FLEXION,POSTURAL EX'S ,LE FLEXABLITY AND MODALTIES NEEDED - Subjective This 60 y/o male presents to physical therapy with back pain with radicular symptoms . Patient has had LBP with radicular for 3 years . Patient pain located right glut hamstring and lateral calf to foot. Patient had x-rays showed anteriorlothesis 2 mm and flexion 5 mm . Aggravating factors standing ,walking ,carrying something, bending and lifting. Alleviating factors sitting or rest. C/O parathesia/tingling in feet right. No abnormal night pain. Patient able to sleep at night . Coughing/sneezing +. Bowel/bladder -. Patient seen chiropractor. Patient has had no trauma. Patient condition affects QOL and function with ADLS and job demands. Patient goal is to decrease lumbar and right leg pain. SOCIAL: . VOCATION: [employer] - Pain Right Back Pain Intensity (Out of 10): 8 Pain Intensity Range: 10 Right Lower Extremity Pain Intensity (Out of 10): 8 Pain Intensity Range: 10 - Objective POSTURE: mild forward posture ,slight increase steppage. GAIT: reciprocal pattern mild forward posture. NEURO: c/o parathesia/tingling right leg ,reflexes L3-4,L4-5,L5-S1 1/3. PALAPTION: unremarkable. SYMMTRIES: align. MMT: quads/hams/hips/ankle 4/5,ankle 5/5. FLEXABLITY: hams mil tight ,piriformis mild tight. LUMBAR ROM: flexion min loss, extension mod loss mild pain ,side glides right mod loss pain, left min loss - Special Tests L/S Slump test left side: Negative L/S Slump test right side: Negative L/S Left Straight Leg Raise: Negative L/S Right Straight Leg Raise: Negative L/S Prone Instability Test: Positive Lumbar Standing: Flexion - Mechanical Response: No effect Lumbar Standing: Flexion - Symptoms During Testing: Increases Lumbar Standing: Flexion - Symptoms After Testing: Worse Lumbar Standing: Extension - Mechanical Response: No effect Lumbar Standing: Extension - Symptoms During Testing: Increases Lumbar Standing: Extension - Symptoms After Testing: Worse Lumbar Standing: Right Side Glides - Mechanical Response: No effect Lumbar Standing: Right Side Deford - Symptoms During Testing: Increases Lumbar Standing: Right Side Deford - Symptoms After Testing: Worse Lumbar Standing: Left Side Deford - Mechanical Response: No effect Lumbar Standing: Left Side Deford - Symptoms During Testing: No effect Lumbar Standing: Left Side Deford - Symptoms After Testing: No effect Lumbar Lying: Flexion - Mechanical Response: No effect Lumbar Lying: Flexion - Symptoms During Testing: Decreases Lumbar Lying: Flexion - Symptoms After Testing: Better - Goals Goal 1:: I with HEP. Goal Time Frame: 4-6 Weeks Goal 2:: Improve posture/body mechanics for ADLS Goal Time Frame: 4-6 Weeks Goal 3:: Decrease LBP and radicular symptoms right leg by 50% or > to improve function with walking and standing. Goal Time Frame: 4-6 Weeks Goal 4:: Patient improve lumbar ROM for function of recovery Goal Time Frame: 4-6 Weeks Goal 5:: Patient to increase back owestry score by 5 points or > to improve function. Goal Time Frame: 4-6 Weeks - Rehabilitation Potential Physical Therapy Diagnosis: This 60 y/o female presents to physical therapy with lumbar pain with radicular symptoms right leg with pain, decrease lumbar ROM ,test movements + with pain,+ anteriorlothesis with instability with flexion worse with standing and walking thus benefit from skilled PT . Rehabilitation Potential: Good - Anticipated Interventions Patient/Client Instruction: Educate patient on: Condition, Plan of Care For the Purpose of:: To decrease pain, To increase ROM, To improve muscle performance and motor function, To improve ability to perform ADL's, To increase tolerance to activity/condition/position, To improve ability of physical actions for home/community/work/leisure, To increase flexibility/ROM, To reduce risk of recurrence, To improve ability to perform tasks related to life management Therapeutic Exercise to Include: Strength training, Body mechanics, Postural training, Flexibilty training, Dynamic Lumbar Stabilization For the Purpose of:: To decrease pain, To improve muscle performance and motor function, To increase tolerance to activity/condition/position, To improve ability of physical actions for home/community/work/leisure, To improve health of tissue, To decrease soft tissue restriction, To increase flexibility/ROM, To reduce risk of recurrence, To improve ability to perform tasks related to life management TENS: Yes IF ES: Yes Cryotherapy (ice pack, ice massage): Yes Thermo therapy (hot pack): Yes Ultrasound (thermal/non thermal): Yes For the Purpose of:: To decrease pain, To decrease swelling/inflammation, To improve health of tissue, To decrease soft tissue restriction Thank you for the opportunity to evaluate your patient. For Medicare and Medicare HMO plans, please review the plan of care and approve it. It will need to be FAXED BACK to us at [phone] for Medicare purposes. For Medicare only, by signing this I certify the plan of care. Please let me know if there are questions or concerns regarding this plan of care. Physician Signature: Date:
--- NOTE | 2021-02-08 17:16 | HP.PT.NRP ---
BILLY LAGOS was seen in my office for initial evaluation on 10/19/20. The following Plan of Care was established for this patient: Initial Frequency: 2x /Week Initial Duration: 4 Weeks Patient/Client Instruction: Educate patient on: Condition, Plan of Care For the Purpose of:: To decrease pain, To increase ROM, To improve muscle performance and motor function, To improve ability to perform ADL's, To increase tolerance to activity/condition/position, To improve ability of physical actions for home/community/work/leisure, To increase flexibility/ROM, To reduce risk of recurrence, To improve ability to perform tasks related to life management Therapeutic Exercise to Include: Strength training, Body mechanics, Postural training, Flexibilty training, Dynamic Lumbar Stabilization For the Purpose of:: To decrease pain, To improve muscle performance and motor function, To increase tolerance to activity/condition/position, To improve ability of physical actions for home/community/work/leisure, To improve health of tissue, To decrease soft tissue restriction, To increase flexibility/ROM, To reduce risk of recurrence, To improve ability to perform tasks related to life management TENS: Yes IF ES: Yes Cryotherapy (ice pack, ice massage): Yes Thermo therapy (hot pack): Yes Ultrasound (thermal/non thermal): Yes For the Purpose of:: To decrease pain, To decrease swelling/inflammation, To improve health of tissue, To decrease soft tissue restriction This patient was last seen in our office . Pertinent comments regarding their Physical therapy will appear below: Patient seen for PT for back back pain. Patient had MRI showed marked stenosis from DR [place] At this point I will be discontinuing this patient from physical therapy. I would be happy to see this patient again in the future if found appropriate by the physician. Thank you! Apollo Hensley, PT, Cert MDT, OCS Balance/Gait/Functional tests - Balance/Special Test Scores Oswestry Low Back Score: 7
== END 2020-10-27 19:00 | disposition home or self-care (01) ==
LOC: PT 07:30
PROVIDERS: PCP Family Medicine; Referring Provider Family Medicine; Visit Provider Family Medicine
DX: M54.9 Dorsalgia, unspecified (principal)
CPT/HCPCS: 97110; 97162

== ENCOUNTER → 2021-10-11 | Outpatient (CLI) | payer OTHER, SELFPAY ==
[2021-10-11 12:45] LABS: Microalbumin,Random Urine 7.1 mg/L (NO RANGE EST.); Microalbumin:Creatinine Ratio 15.5 mg/g CRE (<30 mg/g CRE)
[2021-10-11 13:13] LABS: ALB/GLOB Ratio 1.3 RATIO (0.9-2.4); AST(SGOT) 24 U/L (15-37); Alanine Aminotransfer ALT/SGPT 49 U/L (16-61); Alkaline Phosphatase 50 U/L (45-117); Anion Gap 7 (5-15); BUN 16 mg/dL (7-18); BUN/Creat Ratio 18.6 RATIO (10-20); Calcium,Total 9.4 mg/dL (8.5-10.1); Chloride 105 mmol/L (98-107); Cholesterol 195 mg/dL (200); Creatinine, Serum 0.86 mg/dL (0.70-1.30); EST Glomerular Filtration Rate 96 mL/min (>60); Est Glom Filt Rate - Afr Amer 116 mL/min (>60); Globulin 3.1 g/dL (2.2-4.2); Glucose 107 mg/dL (74-106); High Density Lipoprotein 42 mg/dL; Potassium 3.7 mmol/L (3.5-5.1); Protein, Total 7.1 g/dL (6.4-8.2); Sodium Level 139 mmol/L (136-145); Triglycerides 176 mg/dL; Very Low Density Lipoprotein 35 mg/dL (5-40)
[2021-10-11 13:19] LABS: Hemoglobin A1c 5.9 % (3.8-5.6)
== END | disposition home or self-care (01) ==
LOC: MFPLAB 10:36
PROVIDERS: PCP Family Medicine; Referring Provider Family Medicine; Visit Provider Nurse Practitioner Family
DX: E88.81 Metabolic syndrome and other insulin resistance (principal); I10 Essential (primary) hypertension; E78.2 Mixed hyperlipidemia
CPT/HCPCS: 36415; 80053; 80061; 82043; 82570; 83036

== ENCOUNTER → 2021-12-13 | Outpatient (CLI) | payer OTHER, SELFPAY ==
--- NOTE | 2021-12-13 12:58 | ECHOD_ITS ---
Reason For Study: MURMUR Procedure This was a 2D Doppler, Color Flow transthoracic echocardiogram. Exam performed in department. Left Ventricle Normal LV size. The estimated ejection fraction is 70 %. No evidence for diastolic dysfunction. No regional wall motion abnormalities noted. Right Ventricle Normal RV size. Normal systolic function. Atria The left atrium is mildly enlarged. Normal right atrium. No doppler evidence for ASD. Mitral Valve There is moderate mitral annular calcification. There is no mitral valve stenosis. Trivial mitral valve insufficiency. Tricuspid Valve There is no tricuspid stenosis. Trivial tricuspid valve insufficiency. Pulmonary artery systolic pressure is 25 mmHg. Aortic Valve Mild diffuse aortic valve thickening. Mild aortic stenosis. No aortic valve insufficiency. Pulmonic Valve There is no pulmonic valvular stenosis. No pulmonic valve insufficiency. Great Vessels Normal aortic root. Pericardium/Pleural No pericardial effusion. MMode/2D Measurements & Calculations LVIDd: 4.7 cm IVSd: 1.1 cm LAV(MOD-bp): 94.8 ml LVIDs: 2.8 cm LVPWd: 1.8 cm LAV(MOD-bp) Indexed: 38.4 ml/m2 RVDd: 4.1 cm FS: 39.5 % LAV(MOD-sp2): 88.6 ml LAV(MOD-sp4): 94.5 ml SV(MOD-sp4): 60.5 ml SV(sp4-el): 61.9 ml LVAd ap4: 30.1 cm2 LVLd ap4: 8.7 cm EDV(MOD-sp4): 90.8 ml EDV(sp4-el): 88.2 ml LVAs ap4: 14.9 cm2 LVLs ap4: 7.1 cm ESV(MOD-sp4): 30.3 ml ESV(sp4-el): 26.3 ml EF(MOD-sp4): 66.6 % EF(sp4-el): 70.2 % LA A4 area: 27.9 cm2 RA A4 area: 23.3 cm2 Time Measurements MV dec time: 0.22 sec Doppler Measurements & Calculations MV E max miko: 97.1 cm/sec Lat Peak E' Miko: 10.5 cm/sec Med Peak E' Miko: 7.4 cm/sec MV A max miko: 95.6 cm/sec E/E' lat: 9.2 E/E' med: 13.1 MV E/A: 1.0 MV V2 max: 125.8 cm/sec MV dec slope: 435.6 cm/sec2 Ao V2 max: 245.5 cm/sec MV max P.3 mmHg Ao max P.2 mmHg MV V2 mean: 84.8 cm/sec Ao V2 mean: 175.8 cm/sec MV mean P.2 mmHg Ao mean P.3 mmHg MV V2 VTI: 35.9 cm Ao V2 VTI: 52.0 cm PA V2 max: 159.1 cm/sec ECHO/Echo Complete Interpretation Summary The estimated ejection fraction is 70 %. No evidence for diastolic dysfunction. The left atrium is mildly enlarged. Trivial mitral valve insufficiency. Mild aortic stenosis. Ordering Physician: Buddy Lara Referring Physician: Buddy Lara Performed By: Hermelinda Sanders RCS
== END | disposition home or self-care (01) ==
PROVIDERS: PCP Family Medicine; Referring Provider Family Medicine; Visit Provider Family Medicine
DX: R01.1 Cardiac murmur, unspecified (principal)
CPT/HCPCS: 93306

== ENCOUNTER 2022-02-22 07:43 | Emergency (ER) | payer OTHER, SELFPAY ==
[2022-02-22 07:44] VITALS: BP 171/99; PULSE 75; RESP 17; TEMP 36.7; O2SAT 98; BMI 37.6
--- NOTE | 2022-02-22 08:11 | ED.VIS.BACK ---
HPI History of Present Illness Chief Complaint: Back Narrative Narrative: 61-year-old male with history of back pain presenting with an acute flare of this. He states is been worse for the last couple of days. He describes it as right-sided and radiating to the gluteal region. He states he had this in the past but never this severely. He saw his primary care physician for this distantly and was also seen by a chiropractor. He states the chiropractor did not help him in the past he did not want to go back. He is using ibuprofen at home without significant relief. He states he does not want to stop taking it because he believes it might be helping. He is ambulatory but states that after about 10 minutes it starts to hurt. If he sits down it is also painful in about 10 minutes. Denies any loss of bladder or bowel control. Denies saddle anesthesia or paresthesia. No direct trauma to the back. [facility] Medical History High cholesterol Hypertension Home Medications aspirin 81 mg chewable tablet 81 mg PO DAILY@0800 02/21/16 [History Last Taken Unknown] atorvastatin 10 mg tablet 10 mg PO QHS 02/21/16 [History Last Taken Unknown] lisinopril 20 mg tablet 20 mg PO DAILY 02/21/16 [History Last Taken 02/27/16 07:00] metoprolol tartrate 25 mg tablet 25 mg PO BID 02/21/16 [History Last Taken 02/27/16 07:00] multivitamin (Daily Multiple tablet) 1 ea PO DAILY 02/21/16 [History Last Taken Unknown] ascorbate calcium (vitamin C) 500 mg tablet 500 mg PO DAILY 10/20/20 [History Last Taken Unknown] chlorthalidone 25 mg tablet 12.5 - 25 mg PO DAILY PRN hypertension 10/20/20 [History Last Taken Unknown] cholecalciferol (vitamin D3) 50 mcg (2,000 unit) capsule 50 mcg PO DAILY 10/20/20 [History Last Taken Unknown] cinnamon bark 500 mg capsule (Cinnamon) 500 mg PO DAILY 10/20/20 [History Last Taken Unknown] omega-3 fatty acids 1,000 mg capsule (Fish Oil Concentrate) 1,000 mg PO DAILY 10/20/20 [History Last Taken Unknown] prednisone 10 mg tablet 50 mg PO DAILY 5 days #25 tabs 02/22/22 [Rx Last Taken Unknown] tizanidine 4 mg capsule (Zanaflex) 4 mg PO TID #20 caps 02/22/22 [Rx Last Taken Unknown] Allergy/AdvReac Type Severity Reaction Status Date / Time adhesive tape [tape] Allergy Rash Verified 02/22/22 07:43 Family History Mother Diabetes Arthritis Father Myocardial infarction Surgical History Hammer toe History of elbow surgery History of hernia repair Social History household members: children Smoking Status: Current every day smoker tobacco type: cigarettes Electronic Cigarette Use: not used second hand exposure: No alcohol intake: current alcohol intake frequency: other details: 2-3 Drinks per day substance use type: does not use ROS ROS ED Constitutional Constitutional ED: Denies chills or fever(s) Eyes Eyes: Denies blurry vision or change in vision ENT ENT ED: Denies ear pain or rhinorrhea Cardiovascular Cardiovascular: Denies chest pain or palpitations Respiratory/Chest Respiratory/Chest: Denies dyspnea or dyspnea on exertion Gastrointestinal Gastrointestinal: Denies abdominal pain or constipation Genitourinary Genitourinary ED: Denies dysuria or hematuria Musculoskeletal Musculoskeletal: Reports back pain Integumentary Denies abscess or Abrasions Neurologic Neurologic: Denies headache(s) or paresthesias Psychiatric Psychiatric: Denies anxiety or depression EXAM Physical Exam Const Vital Signs: 02/22/22 07:44 Temperature 98.1 F Temperature Source Temporal Pulse Rate 75 Respiratory Rate 17 Blood Pressure 171/99 H Blood Pressure Mean 123 Pulse Ox 98 Oxygen Delivery Method Room Air Positive well nourished General Appearance ED: NAD; Negative for pallor HEENT Reports moist mucous membranes Eyes PERRL and EOMs intact bilaterally Resp normal respiratory effort Cardio regular rate and regular rhythm Back/Spine Back/Spine Narrative: Tenderness palpation right lumbar paraspinal musculature. No midline spinal deformity, step-off. There is tenderness in the right gluteal region as well. Extremity normal to inspection and no clubbing, cyanosis or edema Skin no rashes or lesions noted and no wounds General Skin Exam: Negative for jaundice or pallor MDM MDM MDM Narrative Medical decision making narrative: 61-year-old male with nontraumatic lumbar strain. He states he has had this in the past. States he is never had to take anything but ibuprofen for this. Denies any symptoms consistent with cauda equina syndrome. He has not had any direct trauma. I do not believe the patient needs any imaging here today. Patient started on prednisone here and will be given muscle relaxers as well for home. He was given instructions for back care. He will follow-up with his PCP to ensure resolution. Impression: 1. Lumbar strain Lab Data Attestation: I reviewed the patient's lab results. Discharge Plan Triage Chief Complaint: Back ED Provider: Fabien Camejo Dx/Rx/DC Orders Instructions: ED Back Spasm, No Trauma Prescriptions: New prednisone 10 mg tablet 50 mg PO DAILY 5 Days Qty: 25 0RF tizanidine [Zanaflex] 4 mg capsule 4 mg PO TID Qty: 20 0RF No Action chlorthalidone 25 mg tablet 12.5 - 25 mg PO DAILY PRN (Reason: hypertension) Label Comments: 1/2 to 1 Tablet daily as needed for elevated blood pressure ascorbate calcium (vitamin C) 500 mg tablet 500 mg PO DAILY cholecalciferol (vitamin D3) 50 mcg (2,000 unit) capsule 50 mcg PO DAILY omega-3 fatty acids [Fish Oil Concentrate] 1,000 mg capsule 1,000 mg PO DAILY cinnamon bark [Cinnamon] 500 mg capsule 500 mg PO DAILY multivitamin [Daily Multiple] 1 EACH tablet 1 ea PO DAILY atorvastatin 10 MG tablet 10 mg PO QHS lisinopril 20 MG tablet 20 mg PO DAILY aspirin 81 MG tablet,chewable 81 mg PO DAILY@0800 Label Comments: STOPPED FOR SURGERY metoprolol tartrate 25 MG tablet 25 mg PO BID Primary Care Provider: Buddy Lara Referrals: Buddy Lara MD [Primary Care Provider] - Disposition Disposition: Home, Self Care
[2022-02-22] MEDS: predniSONE 20 MG Tablet 60 MG PO (09:08)
[2022-02-22 09:26] VITALS: RESP 16
== END 2022-02-22 09:27 | disposition home or self-care (01) ==
PROVIDERS: Emergency Provider Student in an Organized Health Care Education/Training Program; PCP Family Medicine; Visit Provider Student in an Organized Health Care Education/Training Program
DX: S39.012A Strain of muscle, fascia and tendon of lower back, initial encounter (principal); I10 Essential (primary) hypertension; F17.210 Nicotine dependence, cigarettes, uncomplicated; E78.00 Pure hypercholesterolemia, unspecified; Z79.82 Long term (current) use of aspirin; Z79.899 Other long term (current) drug therapy; X58.XXXA Exposure to other specified factors, initial encounter
CPT/HCPCS: 99283

== ENCOUNTER → 2022-03-16 | Outpatient (CLI) | payer OTHER, SELFPAY ==
--- NOTE | 2022-03-16 06:52 | MRI_ITS ---
HISTORY: Pain down right leg x4 weeks. Injured when twisted body getting out of bed. Painful to lay down. TECHNIQUE: Multiplanar and multisequence MR images of the lumbar spine were obtained without intravenous contrast. 131 images. COMPARISON: MR 10/26/2020, XR 10/07/2020. FINDINGS: VERTEBRAE: Vertebral body heights maintained. Focal fat or hemangioma in the T12 vertebral body again seen. Mild degenerative endplate changes of L1-2. No new significant bone marrow signal abnormality. ALIGNMENT: Unchanged 2 mm retrolisthesis of L1-2 and 2 mm anterolisthesis of L4-5 . SPINAL CANAL: Normal morphology and position of the conus medullaris at L1. No gross epidural collection or ligamentous disruption. INTERVERTEBRAL DISCS: Multilevel posterior disc bulge osteophyte complexes with facet arthropathy superimposed on a developmentally narrow spinal canal. T12-L1: No significant central canal stenosis or foraminal narrowing based on the sagittal images. L1-2: Very mild central canal stenosis and bilateral foraminal narrowing, similar to prior. L2-3: Mild central canal stenosis and minimal narrowing of the bilateral foramina, similar to prior. L3-4: Moderate central canal stenosis, similar to prior. Mild left foraminal narrowing, new from prior. L4-5: Severe central canal stenosis, similar to prior. Mild right foraminal narrowing. L5-S1: Minimal narrowing of the thecal sac. No significant foraminal stenosis. SOFT TISSUES: Posterior subcutaneous edema again noted. MRI/Spine Lumbar (Routine) IMPRESSION: Multilevel degenerative disc disease superimposed on a developmentally narrow spinal canal with severe spinal canal stenosis again seen at L4-5. No acute trauma identified in the lumbar spine. Electronically Signed: Mya Suárez MD at 10:43 EST ,
== END | disposition home or self-care (01) ==
LOC: MRI 06:51
PROVIDERS: PCP Family Medicine; Visit Provider Orthopaedic Surgery
DX: M48.061 Spinal stenosis, lumbar region without neurogenic claudication (principal)
CPT/HCPCS: 72148

== ENCOUNTER 2022-05-27 07:47 | Observation (INO) | payer OTHER, SELFPAY ==
--- NOTE | 2022-05-23 07:24 | EKG12_ITS ---
Test Reason : PREOP Blood Pressure : / mmHG Vent. Rate : 078 BPM Atrial Rate : 078 BPM P-R Int : 168 ms QRS Dur : 108 ms QT Int : 388 ms P-R-T Axes : 054 -60 -02 degrees QTc Int : 442 ms Normal sinus rhythm Left anterior fascicular block Abnormal ECG Confirmed by GARRY WILDER, THALIA ([id number]), art editor KAREN IQBAL ([id number]) on 05/23/2022 1:44:04 PM Referred By: OLVIN Confirmed By:KARISHMA CASTAÑEDA MD
[2022-05-23 08:22] LABS: Absolute Lymphocyte Count 1.94 X10^3/uL (0.83-4.51); Absolute Neutrophil Count 3.9 X10^3/uL (2.0-7.7); Basophil# 0.04 X10^3/uL; Basophil% 0.6 % (0-1); Eosinophils% 4.2 % (0-5); Hematocrit 47.6 % (40-54); Hemoglobin 15.4 g/dL (13.0-16.5); Lymphocyte # 1.94 X10^3/ul (0.83-4.51); Lymphocyte % 26.9 % (19-41); Mean Corp Hgb Conc 32.4 g/dL (32-36); Mean Corpuscular Hgb 30.9 pg (27.0-32.0); Mean Corpuscular Volume 95.6 fL (80-94); Mean Platelet Vol. 10.4 fl (6.2-12.0); Monocyte# 1.03 X10^3/uL; Monocyte% 14.3 % (0-10); NRBC Flagged by Analyzer 0 % (0-5); Neutrophil # 3.85 X10^3/uL (2.7-7.7); Neutrophil % 53.3 % (47-70); Platelet Count 165 K/mm3 (150-450); RBC Distribution Width CV 13.2 % (11.6-14.6); RBC Distribution Width SD 46.5 fl (35.1-43.9); Red Blood Count 4.98 M/mm3 (4.6-6.2); White Blood Count 7.2 K/mm3 (4.4-11.0)
[2022-05-23 08:45] LABS: Microalbumin,Random Urine 23.6 mg/L (NO RANGE EST.); Microalbumin:Creatinine Ratio 20.3 mg/g CRE (<30 mg/g CRE)
[2022-05-23 08:51] LABS: Hemoglobin A1c 5.8 % (3.8-5.6)
[2022-05-23 08:52] LABS: Magnesium 1.9 mg/dL (1.6-2.6)
[2022-05-23 08:57] LABS: ALB/GLOB Ratio 1.1 RATIO (0.9-2.4); AST(SGOT) 17 U/L (15-37); Alanine Aminotransfer ALT/SGPT 36 U/L (16-61); Albumin, Serum 3.6 g/dL (3.2-5.0); Alkaline Phosphatase 46 U/L (45-117); Anion Gap 5 (5-15); BUN 15 mg/dL (7-18); BUN/Creat Ratio 17.8 RATIO (10-20); Calcium,Total 9.1 mg/dL (8.5-10.1); Chloride 108 mmol/L (98-107); Cholesterol 147 mg/dL (200); Creatinine, Serum 0.84 mg/dL (0.70-1.30); EST Glomerular Filtration Rate 98 mL/min (>60); Est Glom Filt Rate - Afr Amer 119 mL/min (>60); Globulin 3.4 g/dL (2.2-4.2); Glucose 124 mg/dL (74-106); High Density Lipoprotein 45 mg/dL; Potassium 3.9 mmol/L (3.5-5.1); Sodium Level 141 mmol/L (136-145); Triglycerides 112 mg/dL; Very Low Density Lipoprotein 22 mg/dL (5-40)
[2022-05-23 09:19] LABS: HIV - WCH Non-Reactive (Nonreactive); Hepatitis B Surface Antibody Non-Reactive; Hepatitis C Antibody Non-Reactive (Nonreactive)
--- NOTE | 2022-05-24 09:42 | PCM.HP.BLA ---
History and Physical [id number] Acct: [id number] Name:? VÍCTOR LAGOS Rep #: [id number] : 1960 ? ? Provider: Dr. Ta Washington, DO Age/Sex:? 61/M ? ? Location: [facility] [place] Status: Signed Intake Vital Signs ? 02/22/2207:44 Height 6 ft Weight: 277 lb 12.519 oz BMI 37.6 BP 171/99 H Respiration 17 Pulse 75 Temp 98.1 F Temp Source Temporal Pulse Oximetry (%) 98 Intake Visit Reasons:?LUMBER SPINE Allergies adhesive tape [tape] Allergy (Verified 02/22/22 07:43) Rash Medications aspirin 81 mg chewable tablet 81 mg PO DAILY@0800 02/21/16 [History Confirmed 03/06/22] atorvastatin 10 mg tablet 10 mg PO QHS 02/21/16 [History Confirmed 03/06/22] lisinopril 20 mg tablet 20 mg PO DAILY 02/21/16 [History Confirmed 03/06/22] metoprolol tartrate 25 mg tablet 25 mg PO BID 02/21/16 [History Confirmed 03/06/22] multivitamin (Daily Multiple tablet) 1 ea PO DAILY 02/21/16 [History Confirmed 03/06/22] ascorbate calcium (vitamin C) 500 mg tablet 500 mg PO DAILY 10/20/20 [History Confirmed 03/06/22] chlorthalidone 25 mg tablet 12.5 - 25 mg PO DAILY PRN hypertension 10/20/20 [History Confirmed 03/06/22] cholecalciferol (vitamin D3) 50 mcg (2,000 unit) capsule 50 mcg PO DAILY 10/20/20 [History Confirmed 03/06/22] cinnamon bark 500 mg capsule (Cinnamon) 500 mg PO DAILY 10/20/20 [History Confirmed 03/06/22] omega-3 fatty acids 1,000 mg capsule (Fish Oil Concentrate) 1,000 mg PO DAILY 10/20/20 [History Confirmed 03/06/22] tizanidine 4 mg capsule (Zanaflex) 4 mg PO TID #20 caps 02/22/22 [Rx Confirmed 03/06/22] hydrocodone-acetaminophen 5-325mg 5mg-325mg 1 tab PO 03/06/22 [History Confirmed 03/06/22] oxycodone-acetaminophen 7.5 mg-325 mg tablet 1 tab PO Q8H PRN pain 13 days #40 tabs 03/06/22 [Rx Confirmed 03/06/22] PFSH Medical History? High cholesterol Hypertension Surgical History? Hammer toe History of elbow surgery History of hernia repair Family History? Mother Diabetes ArthritisFather Myocardial infarction Social History? household members:? children Smoking Status:? Current every day smoker tobacco type: cigarettes Smoking packs per day: 1 Smoking cigarettes per day: 20.0 Years smoked: 45 Smoking pack-years: 45.00 Electronic Cigarette Use:? not used second hand exposure:? No alcohol intake:? current alcohol intake frequency: other details:? 2-3 Drinks per day substance use type:? does not use HPI LUMBER SPINE Details: Parts of this documentation were recorded by a scribe, this documentation accurately reflects the service provided and the decisions made by me, Dr. Ta Washington, DO 03/06/22 1527. VÍCTOR LAGOS is a 61 year old M here today for 1 year F/U after lumbar MRI. Patient was last seen in the office on 10/20/[address] Washington and the MRI was ordered. He then had the MRI completed on 10/26/2020 and failed to return for a F/U. He states that he didn't follow up after the MRI as the pain was manageable. His pain was manageable until about 2 weeks ago. He states that about 2 times the last 2 month he will twist in bed to roll over and he has a severe and shooting pain down the right leg. The most recent twisting incident was 2 weeks ago and he has had severe low back pain since and has been unable to sleep in bed d/t the pain. He states that the leg pain is constant discomfort but worsens with prolonged standing.walking. He states that most of his pain is the shooting pain down the right leg which is increased with walking and WB on the right leg. He does have tingling down the leg occasionally. He states that rest/sitting helps with the pain but doesn't take the pain away. He states that bending and twisting increase his pain. He did go to the ED and was given a medrol dose pack, mucsle relaxer, and pain medication. He states that the medication has been helpful but he is unsure which medication has been helpful as he starting them all at the same time. Víctor returns after not having been seen down approximately 16 months.? Reviewed the MRI scan that was done then but he never did return to the office probably because he felt better.? However the scribe's note above basically tells the story.? 2 weeks ago the pain worsened and it is going down his right leg and what seems to be an L5 dermatome.? Before he never had pain near this bad.? This pain is much worse than it was when I saw him 16 months ago. ? He denies any bowel or bladder dysfunction.? He denies history of unexplained weight loss night fever sweats or chills On examination he does have some positive tension signs on the right side and positive straight leg raising.? He has pain down his leg with extension of his lumbar spine also.? He has good motor strength of all major muscle groups of both lower extremities.? His right posterior tibialis reflex is decreased as compared to the left.? He has mild weakness of the anterior tib on the right as compared to the left.? He has no long tract signs.? Clonus is absent and Babinski's are downgoing. I reviewed his old MRI scan from 16 months ago.? He had marked stenosis at L4-5 with a early grade 1 spondylolisthesis degenerative in nature at that level. I explained to Víctor that certainly something has changed significantly as his pain is so much worse than it was then.? Thus a new MRI scan is in order.? Is possible that the L4-5 disc has herniated making his pain that much worse.? I will see him after the MRI scan and make further recommendations.? I did give him some main pain medication as he is obviously in great discomfort.? A disconcerting reality is that the high-dose steroids that he has been on have really not helped his pain all that much.? I will see him after the new MRI scan and make further recommendations. Coding Level of Care Code Off vis,est,level 2 Diagnoses Spinal stenosis, lumbar? M48.061 Degenerative spondylolisthesis? M43.10 Time Spent (min) 30 Assessment and Plan Assessment and Plan (1) Spinal stenosis, lumbar:
[2022-05-24 12:51] LABS: Hepatitis A AB, Total Negative (Negative)
[2022-05-27] VITALS (15 sets, daily range): BP systolic 99–139; BP diastolic 63–86; PULSE 78–103; RESP 16–18; TEMP 36.1–36.8; O2SAT 94–97; BMI 38.2
[2022-05-27] MEDS: Acetaminophen 500 MG Tablet 1000 MG PO ×3 (06:20→21:29)
[2022-05-27] MEDS: Lactated Ringers 1,000 ML 15 ML IV ×4 (06:20→21:32)
[2022-05-27] MEDS: Magnesium 2 GM for ERAS IV (06:41)
[2022-05-27 07:11] LABS: Bedside Glucose 81 mg/dL (74-106)
--- NOTE | 2022-05-27 08:55 | RAD_ITS ---
STUDY: X-RAY - LUMBAR SPINE REASON FOR EXAM: Male, 61 years old. LAMINECTOMY L4-5 TECHNIQUE: 1 view(s) of the lumbar spine were obtained. COMPARISON: Comparison is made with prior study dated 10/07/2020. FINDINGS: The localization instrument is seen posterior to the L4-L5 disc space level. RAD/Spine 1 View Any Level IMPRESSION: The localization instrument is seen posterior to the L4-L5 disc space level. Electronically Signed: Magan Meyers MD at 9:50 EST ,
[2022-05-27] MEDS: THROMBIN (RECOMBINANT) 20,000 UNIT VIAL 20000 UNIT TOPICAL (09:00)
--- NOTE | 2022-05-27 11:32 | PCM.OPRPT ---
Report of Operation Description of Surgical Findings:: Preoperative diagnosis: Spinal stenosis L4-5 Postoperative diagnosis: The same Procedure: Lumbar laminectomy decompression L4-5 CPT code 11455 Surgeon: Dr. Washington assistant men's lacrosse coach: Checo BERTRAND Anesthesia: General endotracheal administered by [facility] EBL: 50 cc Drain: Medium Hemovac Complications: None Procedure: Patient was taken to the OR where he was placed under general endotracheal anesthesia. Lugo catheter was inserted and neuro monitoring placed her leads on the patient. He was then put on the prone position on the Reginald frame after appropriate positioning with care to protect his bony prominences his genitalia, his brachial plexus, and his ulnar nerves of both elbows and facial features the back was prepped and draped in the standard fashion I then made a longitudinal incision centered over the area thought to be L4 5 subcutaneous tissues were incised the length of the skin incision. Identify the space that we thought would be L4-5 and we elevated the paravertebral muscles first on the right side off of the lamina of L4. An intraoperative x-ray was taken with a marker in place to confirm that we were indeed at L4-5. This was also confirmed by the radiologist. We then opened the opposite side that is the left elevated paravertebral muscles off the lamina of L4 and the top of L5 on the left side. Thorough irrigation was carried out frequently. Then placed the super slide retractors in place given us good access. We then remove the the very big spinous process of L4 and the very top of the L5 spinous process using double-action rongeurs. Once it was removed I thinned the lamina down with double-action rongeurs. I then used's sharp curettes to elevate the ligamentum flavum off the underside of the lamina of L4. I then opened first on the left side from the right side. I did this with #3 #4 Kerrison rongeurs. Once the lateral recess was open I note that he had a very large medially placed L4-5 facet that came quite medially once I release ligamentum flavum off of it with the curettes I was able to remove the medial portion and basically performed a medial facetectomy. Then used curettes to continue to release the ligamentum flavum which was quite difficult all the way from the underside the lamina and along the lateral side. It was then removed carefully with 45 degree Kerrison rongeurs opening completely the left side. I checked the foramen it was quite open for the L5 nerve root. I then moved to the opposite side of the table that is the left. And opened the right side the same manner releasing ligamentum flavum then removing the ligamentum flavum with 45 degree Kerrison rongeurs the lateral recess was completely open and a medial facetectomy was performed on that side of the facet was not as large even though his pain was worse on the right side. Note to be control bleeding with thrombin-soaked Gelfoam and bone wax has been needed. There was an excellent decompression thorough irrigation was carried out 1 last time an amniotic membrane was then placed over the dura to prevent adhesions in the future. Gelfoam was placed over the top of that a medium Hemovac drain was inserted. Close lumbar fascia using [id number] suture with #1 Vicryl followed by closure of subcutaneous tissues with a 2-0 Vicryl and 0 Vicryl in layers in interrupted fashion and skin was approximated using skin clips. Sterile dressings were then applied. The patient was then recovered in the OR he was moved to his hospital bed and taken to recovery in satisfactory condition. The end of operative summary on Víctor Alvarez. This is Dr. Washington dictating.
[2022-05-27] MEDS: BRIMONIDINE 0.2% 5ML BOTTLE 2 DRP EACH EYE (14:26)
[2022-05-27] MEDS: Lisinopril 20 MG Tablet PO (14:27)
[2022-05-27] MEDS: Metoprolol Tartrate 25 MG Tablet PO ×2 (14:27→21:30)
[2022-05-27] MEDS: Ensure Surgery 237 ML LIQUID PO (15:07)
--- NOTE | 2022-05-27 15:12 | CON.PCM.HO_ITS ---
Assessment & Plan Assessment/Plan (1) HTN (hypertension): (2) Hyperlipemia: PLAN: Plan #Spinal stenosis s/p lumbar laminectomy and decompression of L4-5 * today is POD 0 * management as per spine surgery * PT/OT on board * fall precautions * incentive spirometry * #Hypertension * on chlorthalidone, lisinopril and metoprolol * #Hyperlipidemia: on atorvastatin Sleep apnea * on CPAP. * brought his machine from home, which is auto-titrated. * * #NIcotine dependence: Smokes a pack daily. Counseled to quit. Nicotine patch 21mg daily DVT prophylaxis: as per primary team Thank you for hte courtesy of the consult. We will continue to follow with you. HPI Consult Data Date of Consult: 05/27/22 HPI Narrative Reason for Consultation: medical management HPI Narrative: BILLY LAGOS, is a 61 M with a past medical history as outlined who was admitted to the spine surgery service for spinal surgery. Hospitalist service was consulted for medical management. He has a past medical history of hypertension and hyperlipidemia and also smokes a pack of cigarettes daily. He also has sleep apnea uses a CPAP machine at night. Patient was reviewed at his bedside. His son was by his bedside. He had no complaints and said his pain was well controlled if he lays still it was aggravated by movement. He denied any shortness of breath, chest pain, palpitations, dizziness, nausea or vomiting or any other symptoms. Review of systems otherwise negative. Vitals were temperature of 97.7 Fahrenheit with pulse rate of 85 and respiratory rate of 18. He was saturating at 97% on 4 L of oxygen. Hospitalist services to manage his medical problems like hypertension and hyperlipidemia and sleep apnea [facility] Medical History Alcohol use Back pain CPAP (continuous positive airway pressure) dependence High cholesterol History of echocardiogram History of pain when walking History of stress test Hypertension Leg cramps Shortness of breath on exertion Smoker Wears glasses Home Medications aspirin 81 mg chewable tablet 81 mg PO DAILY@0800 02/21/16 [History Last Taken 05/26/22 18:00] atorvastatin 10 mg tablet 10 mg PO QHS 02/21/16 [History Last Taken 05/26/22 18:00] lisinopril 20 mg tablet 20 mg PO DAILY 02/21/16 [History Last Taken 05/26/22 18:00] metoprolol tartrate 25 mg tablet 25 mg PO BID 02/21/16 [History Last Taken 05/26/22 18:00] multivitamin (Daily Multiple tablet) 1 ea PO DAILY 02/21/16 [History Last Taken 05/26/22 18:00] ascorbate calcium (vitamin C) 500 mg tablet 500 mg PO DAILY 10/20/20 [History Last Taken 05/26/22 18:00] chlorthalidone 25 mg tablet 12.5 - 25 mg PO DAILY PRN hypertension 10/20/20 [History Last Taken 05/26/22 18:00] cholecalciferol (vitamin D3) 50 mcg (2,000 unit) capsule 50 mcg PO DAILY 10/20/20 [History Last Taken 05/26/22 18:00] cinnamon bark 500 mg capsule (Cinnamon) 500 mg PO DAILY 10/20/20 [History Last Taken 05/26/22 18:00] omega-3 fatty acids 1,000 mg capsule (Fish Oil Concentrate) 1,000 mg PO DAILY 10/20/20 [History Last Taken 05/26/22 18:00] oxycodone-acetaminophen 5 mg-325 mg tablet 1 tab PO Q6H PRN pain 10 days #40 tabs 05/20/22 [Rx Last Taken Unknown] brimonidine 0.2 % eye drops 2 drp EACH EYE BID 05/27/22 [History Last Taken 05/26/22 18:00] latanoprost 0.005 % eye drops 1 drp EACH EYE QHS 05/27/22 [History Last Taken 05/26/22 18:00] Allergy/AdvReac Type Severity Reaction Status Date / Time adhesive tape [tape] Allergy Rash Verified 05/20/22 14:39 Family History Mother Diabetes Arthritis Father Myocardial infarction Surgical History Hammer toe History of elbow surgery History of hernia repair Social History household members: children Smoking Status: Current every day smoker tobacco type: cigarettes Electronic Cigarette Use: not used second hand exposure: No alcohol intake: current alcohol intake frequency: other details: 2-3 Drinks per day substance use type: does not use ROS Constitutional Constitutional: Reports fatigue; Denies anorexia, change in weight, chills, fever(s), malaise or weakness Eyes Eyes: Denies change in vision ENT HEENT: Denies dysphagia, headache(s), hearing loss, nasal congestion or sore throat Cardiovascular Cardiovascular: Denies chest pain, dyspnea on exertion, edema, lightheadedness, orthopnea, palpitations, paroxysmal nocturnal dyspnea, rapid heart rate or syncope Respiratory/Chest Respiratory/Chest: Denies cough, dyspnea, shortness of breath at rest or shortness of breath with exertion Gastrointestinal Gastrointestinal: Denies abdominal pain, constipation or diarrhea Genitourinary Genitourinary: Denies difficulty urinating Musculoskeletal Musculoskeletal: Denies arthralgias or joint pain Neurologic Neurologic: Denies confusion, dizziness, focal weakness, headache(s), seizure- like activity, seizures or syncope Psychiatric Psychiatric: Denies anxiety or depression Endocrine Endocrinology: Denies change in body appearance Hematologic/Lymphatic Hematologic/Lymphatic: Denies anemia Physical Exam Const alert and oriented x3 Constitutional Narrative: intermittently dozing off Orientation / Consciousness: lethargic HEENT normocephalic, head/scalp atraumatic, hearing grossly normal bilaterally and moist oral mucous membranes Mouth: oral and palatal mucosa normal Eyes PERRL and EOMs intact bilaterally Neck no lymphadenopathy, supple and no JVD Resp Resp Narrative: diminished breath sounds bibasally, no wheezes or crackles. on 4L of oxygen by nasal canula Cardio regular rate, regular rhythm, S1 normal heart sound, S2 normal heart sound and no murmurs GI normal to inspection, nondistended, normoactive bowel sounds, soft to palpation, non-tender and non-distended Extremity normal to inspection, full ROM and no clubbing, cyanosis or edema Skin Skin Narrative: intact drain at site of surgery on lumbar spine. Intact dressing Neuro oriented x3, CN's II-XII intact bilaterally and moves all extremities Sensorium / Orientation: awake Motor Exam: strength 5/5 throughout Lab / Micro Data Result Diagrams: 05/23/22 07:47 05/23/22 07:50 Labs: Laboratory Results - last 24 hr 05/27/22 06:16: POC Glucose 81 Radiology Impression Spine X-Ray 05/27/22 08:55 IMPRESSION: The localization instrument is seen posterior to the L4-L5 disc space level. Electronically Signed: Magan Meyers MD at 9:50 EST , Charges/Coding Visit Charges Office Visits / Consults: 54567 IP Consult L4
--- NOTE | 2022-05-27 15:28 | CASEMGMT ---
WILLIAN HOBSON Assessment: Face to Face with pt for initial transition planning/care coordination assessment. RN JAZLYN introduced self and role at [facility], pt voices understanding and consents to assessment. Pt is A/O x4 and answers all questions appropriately at this time. Pt lying in bed with CPAP on in no distress with son at bedside. Pt agreeable to answering assessment questions in front of son. Care providers, pharmacy, and demographics verified/updated. Admitting Dx: lumbar laminectomy decompression L4-5 PCP:Marco Specialists: JOSE Washington; magnus Abreu Preferred Pharmacy: [facility] Insurance: MMO Prescription Benefit: yes LNOK: Herbie Alvarez, son; Keira Antonio, dtr Living Arrangements: Pt lives alone in a single story home with 2 steps to enter with a rail. Pt reports he is typically I in ADL's and denies concerns at home. Transportation: Pt drives self and denies concerns with transportation. Pt son to transport pt until he can drive again. DME/HHC/SNF: Pt does not use DME other than his CPAP, he has a walker, cane and FWW available to him if needed. Pt denies hx of HHC or SNF stays. Pt states no concerns with going home at time of dc. Pt states no further concerns/needs. CM to follow. Advised pt to ask CM if any further question/concerns/needs arise, voices understanding. Pt Goal: Home Plan: Home
[2022-05-27] MEDS: oxyCODONE 5 MG Tablet PO (16:43)
[2022-05-27] MEDS: Cefazolin 1 GM/50 ML BAG IV (16:44)
[2022-05-27] MEDS: Atorvastatin Calcium 10 MG Tablet PO (21:30)
[2022-05-27] MEDS: Latanoprost 0.005% 1 Bottle 1 DRP EACH EYE (21:30)
[2022-05-28] MEDS: Cefazolin 1 GM/50 ML BAG IV (00:46)
[2022-05-28 03:00] VITALS: BP 113/70; PULSE 85; RESP 16; TEMP 37; O2SAT 96
[2022-05-28] MEDS: oxyCODONE 5 MG Tablet PO (04:04)
[2022-05-28] MEDS: Acetaminophen 500 MG Tablet 1000 MG PO ×2 (06:30→13:37)
[2022-05-28 07:19] VITALS: O2SAT 96
[2022-05-28] MEDS: Ensure Surgery 237 ML LIQUID PO ×2 (08:21→13:38)
[2022-05-28 08:26] VITALS: BP 118/62; PULSE 95; RESP 20; TEMP 37.3; O2SAT 95
[2022-05-28 09:30] VITALS: PULSE 95
[2022-05-28] MEDS: BRIMONIDINE 0.2% 5ML BOTTLE 2 DRP EACH EYE (09:30)
[2022-05-28] MEDS: Lisinopril 20 MG Tablet PO (09:30)
[2022-05-28] MEDS: Metoprolol Tartrate 25 MG Tablet PO (09:30)
--- NOTE | 2022-05-28 12:58 | DCINST_ITS ---
Discharge Instructions Activity Return to work on:: 07/03/22 May shower in (days): 5 May resume sexual activity in: 4-6 weeks Weight Bearing Status: Full weight bearing Lifting Restrictions: 15# Dressing / Incision Remove Dressing in: 4 days Follow Up Care Test Results: Test results from this visit will be discussed in further detail at your follow- up appointment, if applicable. Discharge Plan Admission Admit Date/Time: 05/27/22 07:47 Primary Reason for Your Visit: back surgery Attending Provider: Ta Washington Primary Care Provider: Buddy Lara Consulting Providers: Bishop Ralph Discharge Orders/Prescriptions Prescriptions: No Action chlorthalidone 25 mg tablet 12.5 - 25 mg PO DAILY PRN (Reason: hypertension) Label Comments: 1/2 to 1 Tablet daily as needed for elevated blood pressure ascorbate calcium (vitamin C) 500 mg tablet 500 mg PO DAILY cholecalciferol (vitamin D3) 50 mcg (2,000 unit) capsule 50 mcg PO DAILY omega-3 fatty acids [Fish Oil Concentrate] 1,000 mg capsule 1,000 mg PO DAILY cinnamon bark [Cinnamon] 500 mg capsule 500 mg PO DAILY oxycodone-acetaminophen 5-325 mg tablet 1 tab PO Q6H PRN (Reason: pain) 10 Days Qty: 40 0RF multivitamin [Daily Multiple] 1 EACH tablet 1 ea PO DAILY atorvastatin 10 MG tablet 10 mg PO QHS lisinopril 20 MG tablet 20 mg PO DAILY aspirin 81 MG tablet,chewable 81 mg PO DAILY@0800 Label Comments: STOPPED FOR SURGERY metoprolol tartrate 25 MG tablet 25 mg PO BID latanoprost 0.005 % drops 1 drp EACH EYE QHS brimonidine 0.2 % drops 2 drp EACH EYE BID Label Comments: instill 1 drop into both eyes twice a day Referrals / Follow Up: Buddy Lara MD [Primary Care Provider] - Disposition Disposition (needs filled in before D/C Order can be placed): Home, Self Care
--- NOTE | 2022-05-28 13:18 | PN.HOSP_ITS ---
Subjective Subjective Follow-up after lumbar laminectomy. Mild lower back pain. Patient is going to bathroom. Has surgical drain. Objective Data Objective Data Vital Signs: Vital Signs Temp Pulse Resp BP Pulse Ox O2 Del Method O2 Flow Rate 99.1 F 95 20 H 118/62 95 Room Air 4 05/28/22 08:26 05/28/22 09:30 05/28/22 08:26 05/28/22 08:26 05/28/22 08:26 05/28/22 08:26 05/27/22 14:08 Oxygen Flow Rate (L/min) 4 Oxygen Delivery Method Room Air Weight: 282 lb 3.067 oz Body Mass Index (BMI) 38.2 Intake & Output: Intake and Output for Last 24 Hours 05/26/22 05/27/22 05/28/22 23:59 23:59 23:59 Intake Total 2269 / 2269 50 / 50 Output Total 991 / 1701 1460 / 1460 Balance 1278 / 568 -1410 / -1410 Lab / Micro Data Result Diagrams: 05/23/22 07:47 05/23/22 07:50 Micro: Microbiology 05/23/22 07:47 Swab (Method) Nasal Screen MRSA/MSSA - Final Physical Exam Narrative Seen and examined. Physical exam General: Alert, Oriented x3, Cooperative HEENT: Atraumatic, PERRLA, EOMI, Normocephalic Oral: No Gingival or Mucosal Lesions/ Ulcerations Neck: Supple, No JVD, Negative Carotid Bruits Lungs: Air entry diminished in bilateral lung bases. No crepitation/rhonchi Cardiovascular: Regular rate, Regular Rhythm, Normal S1, Normal S2, No murmurs Abdomen: Bowel Sounds Present, Soft, Non Tender, Non-Distended : No renal angle tenderness. No suprapubic tenderness. Extremities: No edema, Capillary Refill Less than 3 Seconds Skin: No rashes, No breakdown Musculoskeletal/spine: Mild tenderness over lumbar spine. Drain has minimal serosanguineous fluid. Large dressing area, dry Neurological: Cranial nerves II-XII grossly intact, DTR 2+/4 and Symmetrical. Psych/Mental Status: Normal Affect, Appropriate. Assessment & Plan Assessment/Plan (1) HTN (hypertension): (2) Hyperlipemia: PLAN: Plan Physical exam 61-year-old gentleman was admitted by orthopedic spine surgeon for elective lumbar laminectomy surgery. #Spinal stenosis s/p lumbar laminectomy and decompression of L4-5 on 05/27/2022: Surgical dressing is dry. Patient is ambulating good. Lugo catheter was removed and a spontaneously voided urine. Minimal drain collection. Drain removal as per surgeon and medically stable for discharge today. Continue incentive spirometry for 1 week. Continue PT and OT as an outpatient. #Hypertension * Continue chlorthalidone, lisinopril and metoprolol #Hyperlipidemia: on atorvastatin Sleep apnea * on auto CPAP machine at home.. #NIcotine dependence: Smokes a pack daily. Counseled to quit. Nicotine patch 21mg daily DVT prophylaxis: as per primary team Patient is medically stable and can be discharged by orthospine surgery. Charges/Coding Visit Charges Inpatient E&M: 51810 Subs Hosp L2
[2022-05-28 13:55] VITALS: BP 110/68; PULSE 95; RESP 16; TEMP 37.3; O2SAT 96
--- NOTE | 2022-05-28 16:16 | PCM.DC.SUM ---
Providers Date of Admission: 05/27/22 Primary Care Physician: Dr. Buddy Lara MD Attending Physician: This is a discharge summary on Víctor Alvarez. Mr. Alvarez was admitted yesterday the . He went lumbar laminectomy decompression at the L4-5 level. He had severe spinal stenosis. He tolerated the procedure well. Today he has a walked 400 feet without difficulty without a walker. He has had very little drainage from his Hemovac. He relates that his right leg pain is completely gone. Change his dressing the incision was dry and healing well. The drain was removed. We gave him directions regarding his activities at home. He knows to remove the dressing in 4 days and shower in 5 days. He already has an appointment to see me in the office. In addition he already has his pain medication at home. This end of discharge summary on Víctor Alvarez. This is Dr. Washington dictating. Consultations 05/27/22 12:58 Consult: Hospitalist Routine Consulting Provider: Tania Melendrez Reason for Consult: Medical Management EMERGENT Consult: No MD Notified: Yes Date Notified: 05/27/22 Time Notified: 14:34 Method of Notification: Text Reason For Visit: LUMBAR LAMINECTOMY DECOMPRESSION L4-5 Diagnosis Discharge Diagnosis (1) HTN (hypertension): Status: Chronic Code(s): I10 - Essential (primary) hypertension (2) Hyperlipemia: Status: Acute Code(s): E78.5 - Hyperlipidemia, unspecified Medications at Discharge Home Medications aspirin 81 mg chewable tablet 81 mg PO DAILY@0800 02/21/16 atorvastatin 10 mg tablet 10 mg PO QHS 02/21/16 lisinopril 20 mg tablet 20 mg PO DAILY 02/21/16 metoprolol tartrate 25 mg tablet 25 mg PO BID 02/21/16 multivitamin (Daily Multiple tablet) 1 ea PO DAILY 02/21/16 ascorbate calcium (vitamin C) 500 mg tablet 500 mg PO DAILY 10/20/20 chlorthalidone 25 mg tablet 12.5 - 25 mg PO DAILY PRN hypertension 10/20/20 cholecalciferol (vitamin D3) 50 mcg (2,000 unit) capsule 50 mcg PO DAILY 10/20/20 cinnamon bark 500 mg capsule (Cinnamon) 500 mg PO DAILY 10/20/20 omega-3 fatty acids 1,000 mg capsule (Fish Oil Concentrate) 1,000 mg PO DAILY 10/20/20 oxycodone-acetaminophen 5 mg-325 mg tablet 1 tab PO Q6H PRN pain 10 days #40 tabs 05/20/22 brimonidine 0.2 % eye drops 2 drp EACH EYE BID 05/27/22 latanoprost 0.005 % eye drops 1 drp EACH EYE QHS 05/27/22 Weight / BMI Weight Weight: 282 lb 3.067 oz Body Mass Index (BMI) 38.2 ABG / Lab / Microbiology Data Result Diagrams: 05/23/22 07:47 05/23/22 07:50 Microbiology: Microbiology 05/23/22 07:47 Swab (Method) Nasal Screen MRSA/MSSA - Final D/C Instructions Return to work on: 07/03/22 May shower in (days): 5 May resume sexual activity in: 4-6 weeks Weight Bearing Status: Full weight bearing Meaningful Use Info Meaningful Use Diagnoses (Choose all that apply): None applicable Discharge Plan Admission Admit Date/Time: 05/27/22 07:47 Primary Reason for Your Visit: back surgery Attending Provider: Ta Washington Primary Care Provider: Buddy Lara Consulting Providers: Bishop Ralph Discharge Orders/Prescriptions Prescriptions: No Action chlorthalidone 25 mg tablet 12.5 - 25 mg PO DAILY PRN (Reason: hypertension) Label Comments: 1/2 to 1 Tablet daily as needed for elevated blood pressure ascorbate calcium (vitamin C) 500 mg tablet 500 mg PO DAILY cholecalciferol (vitamin D3) 50 mcg (2,000 unit) capsule 50 mcg PO DAILY omega-3 fatty acids [Fish Oil Concentrate] 1,000 mg capsule 1,000 mg PO DAILY cinnamon bark [Cinnamon] 500 mg capsule 500 mg PO DAILY oxycodone-acetaminophen 5-325 mg tablet 1 tab PO Q6H PRN (Reason: pain) 10 Days Qty: 40 0RF multivitamin [Daily Multiple] 1 EACH tablet 1 ea PO DAILY atorvastatin 10 MG tablet 10 mg PO QHS lisinopril 20 MG tablet 20 mg PO DAILY aspirin 81 MG tablet,chewable 81 mg PO DAILY@0800 Label Comments: STOPPED FOR SURGERY metoprolol tartrate 25 MG tablet 25 mg PO BID latanoprost 0.005 % drops 1 drp EACH EYE QHS brimonidine 0.2 % drops 2 drp EACH EYE BID Label Comments: instill 1 drop into both eyes twice a day Referrals / Follow Up: Buddy Lara MD [Primary Care Provider] - Disposition Disposition (needs filled in before D/C Order can be placed): Home, Self Care
== END 2022-05-28 14:07 | disposition home or self-care (01) ==
LOC: SDC 12:06 → MS3 12:06
PROVIDERS: Anesthesiology; Admitting Provider Orthopaedic Surgery; PCP Family Medicine; Referring Provider Orthopaedic Surgery; Visit Provider Orthopaedic Surgery
PROC: (CPT 63030; principal; 2022-05-27 07:00)
DX: M48.061 Spinal stenosis, lumbar region without neurogenic claudication (principal); F17.210 Nicotine dependence, cigarettes, uncomplicated; I10 Essential (primary) hypertension; E78.00 Pure hypercholesterolemia, unspecified; Z79.82 Long term (current) use of aspirin; Z79.899 Other long term (current) drug therapy; R06.02 Shortness of breath; M20.40 Other hammer toe(s) (acquired), unspecified foot; G47.30 Sleep apnea, unspecified
CPT/HCPCS: 63047; 00630; 36415; 72020; 80053; 80061; 82043; 82570; 82962; 83036; 83735; 85025; 86703; 86706; 86708; 86803; 87081; 93005; 94762; 96365; 96366; 97162; 99221; 99252; J7120; G0378; G0463; J2405

== ENCOUNTER → 2023-04-24 | Outpatient (CLI) | payer OTHER, SELFPAY ==
[2023-04-24 10:37] LABS: Erythrocyte Sedimentation Rate 12 mm/hr (0-20)
[2023-04-24 10:43] LABS: Vitamin B12 718 pg/mL (211-911); Vitamin D,25 Hydroxy 34.6 ng/mL
[2023-04-24 10:44] LABS: Absolute Lymphocyte Count 1.72 X10^3/uL (0.83-4.51); Absolute Neutrophil Count 4.9 X10^3/uL (2.0-7.7); Basophil# 0.04 X10^3/uL; Basophil% 0.5 % (0-1); Eosinophil# 0.35 X10^3/uL; Eosinophils% 4.2 % (0-5); Hematocrit 45.7 % (40-54); Lymphocyte # 1.72 X10^3/ul (0.83-4.51); Lymphocyte % 20.7 % (19-41); Mean Corp Hgb Conc 32.8 g/dL (32-36); Mean Corpuscular Hgb 30.8 pg (27.0-32.0); Mean Corpuscular Volume 93.8 fL (80-94); Mean Platelet Vol. 10.4 fl (6.2-12.0); Monocyte# 1.25 X10^3/uL; Monocyte% 15.1 % (0-10); NRBC Flagged by Analyzer 0 % (0-5); Platelet Count 210 K/mm3 (150-450); RBC Distribution Width CV 12.6 % (11.6-14.6); RBC Distribution Width SD 43.8 fl (35.1-43.9); Red Blood Count 4.87 M/mm3 (4.6-6.2); White Blood Count 8.3 K/mm3 (4.4-11.0)
[2023-04-24 11:15] LABS: Microalbumin,Random Urine 12.4 mg/L (NO RANGE EST.); Microalbumin:Creatinine Ratio 16.6 mg/g CRE (<30 mg/g CRE)
[2023-04-24 11:46] LABS: ALB/GLOB Ratio 0.9 RATIO (0.9-2.4); AST(SGOT) 21 U/L (15-37); Alanine Aminotransfer ALT/SGPT 40 U/L (16-61); Albumin, Serum 3.4 g/dL (3.2-5.0); Alkaline Phosphatase 65 U/L (45-117); Anion Gap 6 (5-15); BUN 15 mg/dL (7-18); BUN/Creat Ratio 18.9 RATIO (10-20); CRP 7.88 mg/L (0.0-3.0); Chloride 106 mmol/L (98-107); Creatinine, Serum 0.79 mg/dL (0.70-1.30); EST Glomerular Filtration Rate 105 mL/min (>60); Est Glom Filt Rate - Afr Amer 127 mL/min (>60); Ferritin 217 ng/mL (26-388); Globulin 3.8 g/dL (2.2-4.2); Glucose 106 mg/dL (74-106); Potassium 4.2 mmol/L (3.5-5.1); Protein, Total 7.2 g/dL (6.4-8.2); Rheumatoid Factor < 10.0 IU/mL (<15); Sodium Level 139 mmol/L (136-145)
[2023-04-25 11:08] LABS: ANTINUCLEAR ANTIBODIES DIRECT Negative (Negative)
[2023-04-25 12:08] LABS: Lyme Scn Total Ab w/Rflx Negative (Negative); PROEL- A/G Ratio 1.1 (0.7-1.7); PROEL- Albumin 3.5 g/dL (2.9-4.4); PROEL- Alpha-1 Globulin 0.3 g/dL (0.0-0.4); PROEL- Alpha-2 Globulin 0.8 g/dL (0.4-1.0); PROEL- Globulin, Total 3.1 g/dL (2.2-3.9); PROEL- TOTAL PROTEIN 6.6 g/dL (6.0-8.5); PROEL-M-Spike Not Observed g/dL (Not Observed)
== END | disposition home or self-care (01) ==
LOC: MTLAB 07:06
PROVIDERS: PCP Family Medicine; Referring Provider Family Medicine; Visit Provider Family Medicine
DX: Z12.5 Encounter for screening for malignant neoplasm of prostate (principal); I10 Essential (primary) hypertension; G47.33 Obstructive sleep apnea (adult) (pediatric); E88.810 Metabolic syndrome; M25.50 Pain in unspecified joint; R20.2 Paresthesia of skin
CPT/HCPCS: 36415; 80053; 82043; 82306; 82570; 82607; 82728; 82746; 84153; 84165; 85025; 85652; 86038; 86140; 86431; 86618; G0103

== ENCOUNTER → 2023-05-08 | Outpatient (CLI) | payer OTHER, SELFPAY ==
--- NOTE | 2023-05-08 06:52 | CT_ITS ---
EXAM: CT CHEST, LUNG CANCER SCREENING WITHOUT INTRAVENOUS CONTRAST CLINICAL INDICATION: and gt; 20 years toboacco/nicotine; still smoking TECHNIQUE: Helically acquired images were obtained of the chest without intravenous contrast using low dose (LDCT) lung cancer screening protocol. This CT exam was performed using one or more of the following dose reduction techniques: automated exposure control, adjustment of the mA and/or kV according to patient size, and/or use of iterative reconstruction technique. COMPARISON: 10/07/2020 FINDINGS: LUNGS AND PLEURAL SPACES: Small pleural-based nodule right middle lobe and measures 3 mm seen on series 2 image 175. No pneumothorax. HEART: Unremarkable. Heart size is normal. No pericardial effusion. No significant coronary artery calcifications. MEDIASTINUM: Unremarkable. No mediastinal or hilar adenopathy. Esophagus is unremarkable. No hiatal hernia. THYROID: Unremarkable. No thyroid lesions. BONES/JOINTS: Unremarkable. No suspicious lytic or blastic abnormality. VASCULATURE: Unremarkable. Thoracic aorta is non-dilated. LYMPH NODES: Unremarkable. No enlarged lymph nodes. CT/Low Dose CT Lung Screening IMPRESSION: No acute pulmonary abnormality. There is a small pleural-based nodule in the right middle lobe. Lung-RADS score: 2 - Benign Appearance or Behavior. Recommend continued annual screening with a low-dose CT (LDCT) in 12 months. Electronically Signed: Erasmo Flores MD at 22:11 EST ,
--- OUTSIDE RECORDS SUMMARY | 2023-05-08 06:53 | XMS RPT_ITS | CCD ---
Author Name Unknown Address [address] [place] [address] Organization [facility] Care Team Providers Care Shipping Weigher Name Role Phone SVITLANA TRUJILLO Primary Care Unavailable Allergies Allergy Classification Reported Allergen(s) Allergy Type Date of Onset Reaction(s) Facility (1 source) ADHESIVE TAPE-SILICONES; Translations: [ADHESIVE TAPE-SILICONES] Propensity to adverse reactions to drug (disorder) [facility] Repository Results Test Name Value Interpretation Reference Range Facil ity Encounters Encounter Date Encounter Type Care Provider Facility Start: 03-19-2023 End: 03-19-2023 ambulatory SVITLANA TRUJILLO Facility:[facility] Payers Date Payer Category Payer Unknown [id number] Progress note 03-19-2023 Note Date & Type Note Facility 03-19-2023 Note HNO ID: [id number] Author: Dafne Ruby APRN.[employer]ICE Service: ? Author Type: Nurse Practitioner Type: Progress Notes Filed: 03/19/2023 4:52 PM Note Text: Subjective Cough Associated symptoms include headaches. Pertinent negatives include no chest pain, no chills, no ear pain, no sore throat and no shortness of breath. Víctor Alvarez is a 62 year old male who presents with headache, productive cough, nasal congestion, left ear feels plugged. Today he has a headache and his teeth are throbbing. He has had symptoms for the past 9 days. He has not had a fever. He has been taking Sudafed and Delsym at home. Review of Systems Constitutional: Negative for chills and fever. HENT: Positive for congestion and hearing loss. Negative for ear discharge, ear pain and sore throat. Respiratory: Positive for cough and sputum production. Negative for shortness of breath. Cardiovascular: Negative for chest pain. Neurological: Positive for headaches. BP 134/86 Pulse 93 Temp 36.7 ?C (98 ?F) Resp 21 Wt 129 kg (284 lb 6.4 oz) SpO2 97% PAST MEDICAL HISTORY Diagnosis Date Cardiac murmur 2014 Glaucoma Hyperlipemia Hypertension KAIDEN on CPAP Snoring PAST SURGICAL HISTORY Procedure Laterality Date COLONOSCOPY FLX DX W/COLLJ SPEC WHEN PFRMD 02-20-16 repeat in 10 yrs PAST SURGICAL HISTORY OF Right 1986 elbow surgery x3 PAST SURGICAL HISTORY OF Right 2010 hammer toe RPR UMBILICAL HERNIA AGE 5 YRS/> INCARCERATED 02-27-16 ALLERGIES Tape [Adhesive Tape-Silicones] MEDICATIONS lisinopril (ZESTRIL, PRINIVIL) 20 mg tablet latanoprost (XALATAN) 0.005 % ophthalmic solution aspirin, enteric coated (ASPIRIN, ENTERIC COATED) 81 mg EC tablet Take 81 mg by mouth once daily. [place]-3 Fatty Acids-Vitamin E (FISH OIL) 1,000 mg cap Take 1 capsule by mouth. Multivitamin capsule Take 1 capsule by mouth once daily. ascorbic acid (VITAMIN C) 500 mg tablet Take 500 mg by mouth twice daily. amoxicillin-clavulanate potassium (AUGMENTIN) 875-125 mg per tablet Take 1 tablet by mouth two times a day for 7 days. timolol maleate (TIMOPTIC) 0.5 % ophthalmic solution (Patient not taking: Reported on 03/19/2023) metoprolol tartrate, short acting, (LOPRESSOR) 25 mg tablet once daily. atorvastatin (LIPITOR) 20 mg tablet 10 mg once daily. chlorthalidone (HYGROTON) 25 mg tablet 1 tablet once daily. FAMILY HISTORY Problem Relation Age of Onset other (heart disease [Other]) Father other (heart disease [Other]) Brother other (dementia [Other]) Mother Arthritis Brother x 2 Social History Tobacco Use Smoking status: Every Day Packs/day: .5 Types: Cigarettes Substance Use Topics Alcohol use: Yes Comment: 1-2 beers per day Drug use: No Objective Physical Exam Vitals and nursing note reviewed. Constitutional: General: He is not in acute distress. Appearance: Normal appearance. He is ill-appearing. HENT: Right Ear: Tympanic membrane, ear canal and external ear normal. Left Ear: Tympanic membrane, ear canal and external ear normal. Nose: Mucosal edema, congestion and rhinorrhea present. Mouth/Throat: Mouth: Mucous membranes are moist. Pharynx: Oropharynx is clear. Uvula midline. No oropharyngeal exudate or posterior oropharyngeal erythema. Cardiovascular: Rate and Rhythm: Normal rate and regular rhythm. Heart sounds: Normal heart sounds. Pulmonary: Effort: Pulmonary effort is normal. No respiratory distress. Breath sounds: Normal breath sounds. No wheezing or rales. Musculoskeletal: Cervical back: Neck supple. Lymphadenopathy: Cervical: No cervical adenopathy. Skin: General: Skin is warm and dry. Findings: No erythema or rash. Neurological: Mental Status: He is alert. ASSESSMENT/PLAN: 1. Bacterial sinusitis - ICD9: 473.9, 041.9, ICD10: J32.9, B96.89 - Will begin treatment with Augmentin 875 mg PO BID for 7 days - The patient should also be given flonase nasal spray for the first 5-7 days of treatment. - Supportive care with plenty of fluids, rest, and analgesia prn. - AMOXICILLIN 875 MG-POTASSIUM CLAVULANATE 125 MG TABLET - Follow-up with your PCP in 3-5 days if symptoms have not improved or sooner if symptoms worsen - Discussed red flags and need for immediate medical evaluation if any occur. - Discussed supportive care treatment with fluids, rest and analgesia. - Discussed expected course of illness Dafne Ruby APRN.[facility] Summary Purpose Family History No Family History Records Found Advance Directives No Advanced Directives Records Found Additional Source Comments (unrecognized sect ion and content) No Status Records Found INFORMATION SOURCE (unrecogn ized section and content) FOR RECORDS PERTAINING TO PATIENTS WHO ARE OR HAVE BEEN ENROLLED IN A CHEMICAL DEPENDENCY/SUBSTANCEABUSE PROGRAM, SOME INFORMATION MAY BE OMITTED. This clinical summary was aggregated from multiple sources. Caution should be exercised in using it in the provision of clinical care. This summary normalizes information from multiple sources, and as a consequence, information in this document may materially change the coding, format and clinical context of patient data. In addition, data may be omitted in some cases. CLINICAL DECISIONS SHOULD BE BASED ON THE PRIMARY CLINICAL RECORDS. [employer] provides no warranty or guarantee of the accuracy or completeness of information in this document.
== END | disposition home or self-care (01) ==
PROVIDERS: PCP Family Medicine; Referring Provider Family Medicine; Visit Provider Family Medicine
DX: F17.200 Nicotine dependence, unspecified, uncomplicated (principal); R91.1 Solitary pulmonary nodule
CPT/HCPCS: 71271

== ENCOUNTER 2023-07-16 06:35 | Day surgery (SDC) | payer OTHER, SELFPAY ==
[2023-07-16] VITALS (8 sets, daily range): BP systolic 124–142; BP diastolic 70–86; PULSE 83–98; RESP 17–22; TEMP 36.5–36.9; O2SAT 93–97; BMI 39.8
--- OUTSIDE RECORDS SUMMARY | 2023-07-16 06:38 | XMS RPT_ITS | CCD ---
Author Name Unknown Address [address] [place] [address] Organization [facility] Care Team Providers Care Records Analyst Name Role Phone SVITLANA TRUJILLO Primary Care Unavailable Aleksander WILDER, Mamadou Torres Primary Care Provider MAMADOU ARMIJO Attending Unavailable ALEKSANDER, MAMADOU Primary Care Unavailable ALEKSANDER, MAMADOU Attending Unavailable ALEKSANDER, MAMADOU Primary Care Unavailable ALEKSANDER, MAMADOU Attending Unavailable ALEKSANDER, MAMADOU Referring Unavailable ALEKSANDER, MAMADOU Primary Care Unavailable ALEKSANDER, MAMADOU Attending Unavailable ALEKSANDER, MAMADOU Referring Unavailable ALEKSANDER, MAMADOU Primary Care Unavailable ALEKSANDER, MAMADOU Primary Care Unavailable Allergies Allergy Classification Reported Allergen(s) Allergy Type Date of Onset Reaction(s) Facility (1 source) ADHESIVE TAPE-SILICONES; Translations: [ADHESIVE TAPE-SILICONES] Propensity to adverse reactions to drug (disorder) 6 [facility] (8 sources) Adhesive Tape Drug Intolerance 6 Other [facility] Medications Current Medications Medication Drug Class(es) Dates Sig (Normalized) Sig (Original) ascorbic acid 500 mg chewable tablet (8 sources) Vitamin C take 1 tablet by mouth in the morning ascorbic acid (Vitamin C) 500 MG tablet Take 500 mg by mouth in the morning and 500 mg in the evening. 0 Active aspirin 81 mg delayed release oral tablet (8 sources) Platelet Aggregation Inhibitor, Nonsteroidal Anti-inflammatory Drug Start: 12-13-2022 take 1 tablet by mouth once daily Aspirin Low Dose 81 MG EC tablet Take 81 mg by mouth daily. 0 12/13/2022 Active atorvastatin 20 mg oral tablet (8 sources) HMG-CoA Reductase Inhibitor Start: 04-02-2023 take 1 tablet by mouth once daily atorvastatin (Lipitor) 20 MG tablet Take 20 mg by mouth daily. 0 04/02/2023 Active chlorthalidone 25 mg oral tablet (8 sources) Thiazide-like Diuretic Start: 04-17-2023 take 1 tablet by mouth once daily chlorthalidone (Hygroton) 25 MG tablet Take 25 mg by mouth daily. 0 04/17/2023 Active cinnamon preparation 500 mg oral tablet (8 sources) Non-Standardized Food Allergenic Extract Cinnamon 500 MG tablet Take by mouth. 0 Active fluticasone propionate 0.05 mg/actuat metered dose nasal spray (2 sources) Corticosteroid Start: 06-12-2023 End: 06-26-2023 take 2 spray(s) nasal route once daily fluticasone (Flonase) 50 MCG/ACT nasal spray Indications: Nasal congestion Administer 2 sprays into each nostril daily for 14 days. Shake gently. Before first use, prime pump. After use, clean tip and replace cap. 16 g 0 06/12/2023 Active gabapentin 300 mg oral capsule (9 sources) Anti-epileptic Agent Start: 06-12-2023 End: 12-09-2023 take 1 capsule by mouth three times daily gabapentin (Neurontin) 300 MG capsule Indications: Numbness and tingling of both upper extremities Take 1 capsule (300 mg) by mouth 3 times daily. 90 capsule 5 06/12/2023 12/09/2023 Active Completed/Discontinued Medications Medication Drug Class(es) Dates Sig (Normalized) Sig (Original) acetaminophen 325 mg / oxyCODONE hydrochloride 5 mg oral tablet (2 sources) Opioid Agonist Start: 05-20-2022 End: 05-08-2023 take 1 tablet by mouth every six hours as needed oxyCODONE-acetamin ophen (Percocet) 5-325 MG tablet Take 1 tablet by mouth every 6 hours as needed. 0 05/20/2022 05/08/2023 Discontinued (Therapy completed) brimonidine tartrate 2 mg/ml ophthalmic solution (3 sources) alpha-Adrenergic Agonist Start: 10-11-2022 End: 05-08-2023 take 1 drop(s) into the eye(s) twice daily brimonidine (AlphaGAN P) 0.2 % ophthalmic solution Administer 1 drop into both eyes 2 times daily. 0 10/11/2022 05/08/2023 Discontinued (Therapy completed) Problems Active Problems Problem Classification Problem Date Documented Date Episodic/Chronic Disorders of lipid metabolism (8 sources) Pure hypercholesterolemia; Translations: [Pure hypercholesterolemia, unspecified] Onset: 05-08-2023 05-08-2023 Chronic Essential hypertension (12 sources) Essential hypertension; Translations: [Essential (primary) hypertension] Onset: 04-25-2015 05-08-2023 Chronic Other nervous system disorders (7 sources) Paresthesia of upper limb; Translations: [Anesthesia of skin] 05-08-2023 Episodic Other nervous system disorders (2 sources) Anesthesia of skin; Translations: [Anesthesia of skin] Onset: 05-08-2023 Episodic Other nervous system disorders (2 sources) Paresthesia of skin; Translations: [Paresthesia of skin] Onset: 05-08-2023 Episodic Other nutritional; endocrine; and metabolic disorders (8 sources) Constitutional obesity; Translations: [Other obesity] Onset: 04-25-2015 05-08-2023 Chronic Other upper respiratory disease (1 source) Nasal congestion; Translations: [Nasal congestion] 06-15-2023 Episodic Residual codes; unclassified (8 sources) History of operative procedure on lumbar spinal structure; Translations: [Other specified postprocedural states] Onset: 05-08-2023 05-08-2023 Episodic Past or Other Problems Problem Classification Problem Date Documented Da te Episodic/Chronic Abdominal hernia (8 sources) Umbilical hernia; Translations: [Umbilical hernia without obstruction or gangrene] Onset: 04-25-2015 05-08-2023 Episodic Results Test Name Value Interpretation Reference Range Facil ity Vital Signs Date Time Vital Sign Value Performing Clinician Faci lity 06-26-2023 08:57-0500 Diastolic blood pressure 80 mm[Hg] [facility] [employer] 06-26-2023 08:57-0500 Heart rate 92 /min [place] Schedule [facility] 06-26-2023 08:57-0500 Systolic blood pressure 138 mm[Hg] [place] Schedule [facility] 06-12-2023 08:32-0500 Diastolic blood pressure 72 mm[Hg] Mamadou Armijo MD Work Phone: [facility] 06-12-2023 08:32-0500 Systolic blood pressure 151 mm[Hg] Mamadou Armijo MD Work Phone: [facility] [employer] 06-12-2023 07:53-0500 Body height 180.3 cm Mamadou Armijo MD Work Phone: [facility] [employer] 06-12-2023 07:53-0500 Body mass index (BMI) [Ratio] 40.59 kg/m2 Mamadou Armijo MD Work Phone: [facility] [employer] 06-12-2023 07:53-0500 Body temperature 98.6 [degF] Mamadou Armijo MD Work Phone: [facility] [employer] 06-12-2023 07:53-0500 Body weight 132 kg Mamadou Armijo MD Work Phone: [facility] [employer] 06-12-2023 07:53-0500 Heart rate 48 /min Mamadou Armijo MD Work Phone: [facility] [employer] 06-12-2023 07:53-0500 SaO2% (BldA) [Mass fraction] 97 % Mamadou Armijo MD Work Phone: [facility] [employer] 05-08-2023 14:16-0500 Body height 180.3 cm Mamadou Armijo MD Work Phone: [facility] [employer] 05-08-2023 14:16-0500 Body mass index (BMI) [Ratio] 38.77 kg/m2 Mamadou Armijo MD Work Phone: [facility] [employer] 05-08-2023 14:16-0500 Body temperature 97.11 [degF] Mamadou Armijo MD Work Phone: [facility] [employer] 05-08-2023 14:16-0500 Body weight 126.1 kg Mamadou Armijo MD Work Phone: [facility] [employer] 05-08-2023 14:16-0500 Diastolic blood pressure 76 mm[Hg] Mamadou Armijo MD Work Phone: [facility] [employer] 05-08-2023 14:16-0500 Heart rate 80 /min Mamadou Armijo MD Work Phone: [facility] [employer] 05-08-2023 14:16-0500 SaO2% (BldA) [Mass fraction] 96 % Mamadou Armijo MD Work Phone: [facility] 05-08-2023 14:16-0500 Systolic blood pressure 136 mm[Hg] Mamadou Armijo MD Work Phone: [facility] Encounters Encounter Date Encounter Type Care Provider Facility Start: 06-26-2023 End: 06-26-2023 ambulatory MAMADOU ARMIJO [facility] Start: 06-26-2023 End: 06-26-2023 Clinical Support [place] [facility] Schedule [facility] Medical [facility] Procedures Date Procedure Procedure Detail Performing Clinician Start: 06-12-2023 Drug tst prsmv read instrmnt asstd dir opt obs Mamadou Armijo MD Work Phone: Start: 05-15-2023 NERVE CONDUCTION WALE T WITH EMG Mamadou rAmijo MD Work Phone: Start: 05-08-2023 Comprehensive metabo lic panel Mamadou Armijo MD Work Phone: Start: 05-08-2023 Thyrotropin [Units/v olume] in Serum or Plasma Mamadou Armijo MD Work Phone: Plan of Treatment Date Care Activity Detail Author Start: 05-08-2024 COVID-19 Vaccine ( season) COVID-19 Vaccine ( season) [facility] Immunizations Immunization Date Immunization Notes Care Provider Asif duran 02-16-2014 tetanus toxoid, redu mirlande diphtheria toxoid, and acellular pertussis vaccine, adsorbed Mamadou Armijo MD Work Phone: [facility] Payers Date Payer Category Payer Unknown [employer] [id number] 2022-Present [address] [place] [address] Commercial [id number] 2013 Unknown [id number] Social History Date Type Detail Facility Start: 05-05-1975 Tobacco smoking status NHIS Smokes t obacco daily [facility] Start: 05-05-1975 History of tobacco use Cigarette Smo ker [facility] Start: 05-08-2023 End: 06-12-2023 Cigarettes smoked current (pack per day) - Reported 1 [facility] History of tobacco use Passive smoker [facility] Start: 05-08-2023 Tobacco use and exposure Smokeless t obacco non-user [facility] Start: 05-08-2023 End: 06-12-2023 Alcohol intake Current drinker of alcohol (finding) [facility] Start: 05-08-2023 End: 06-12-2023 Tobacco use panel [facility] Start: 05-08-2023 Alcohol Comment occ [facility] Start: 1960 Sex Assigned At Not on file S [facility] Clinical Notes 03-19-2023 to 06-26-2023 Sanjuana Merchant LPN - 06/26/2023 8:00 AM Tyrone Armijo MD - 06/12/2023 7:40 AM ESTAddendum Note - Mamadou Armijo MD - 06/12/2023 7:40 AM Ayanna Sanches DO - 05/15/2023 8:00 AM EST Note Date & Type Note Facility 06-26-2023 History of Present illness Narrative Here for BP check, started on lisinopril at last ov. BP today was 138/80, left arm. Pulse 92. Telephone encounter sent to Dr. Armijo, Patient wanted to let Dr. Armijo know that he is having bilateral carpal tunnel surgery on July 15. Will also ask When she would like to see him again. documented in this encounter [facility] 06-12-2023 Note Addended by: MAMADOU ARMIJO on: 06/18/2023 03:19 PM Modules accepted: Level of Service [facility] 06-12-2023 History of Present illness Narrative Images from the original note were not included. [facility] [address] [facility] [address] Dept: [phone] Dept Loc: [phone] 06/12/2023 Visit type: established patient Reason for Visit: Follow-up (Pt is here for a follow up, numbness and tingling to bilat upper extremities. Pt reports symptoms are worse. Continues to take Gabapentin with minimal relief (taking 100mg)) ASSESSMENT/PLAN 1. Essential hypertension - lisinopril 40 MG tablet; Take 1 tablet (40 mg) by mouth daily., Starting Ailyn 06/12/2023, Normal - Basic metabolic panel - Chronic, uncontrolled, increase lisinopril as above 2. Numbness and tingling of both upper extremities - gabapentin (Neurontin) 300 MG capsule; Take 1 capsule (300 mg) by mouth 3 times daily., Starting Fri06/12/2023, Until Fri12/09/2023, Normal - Basic metabolic panel - AMB POC DRUG SCREEN 12, [facility] 3. Nasal congestion - fluticasone (Flonase) 50 MCG/ACT nasal spray; Administer 2 sprays into each nostril daily for 14 days. Shake gently. Before first use, prime pump. After use, clean tip and replace cap., Starting Ailyn 06/12/2023, Until Fri06/26/2023, Normal Follow up in about 2 weeks (around 06/26/2023) for Nurse visit for BP check . Subjective Patient: Víctor Lagos is a 62 y.o. male HPI HTN -Patient with elevated BP this OV 146/77 mmHg initially and then 151/72 mmHg. Currently on metoprolol xl Congestion -Has had ear fullness, congestion, post nasal drip -Overall improving -Denies fevers, chills, SOB, sinus pain or pressure Review of Systems Constitutional: Negative for chills, fatigue and fever. HENT: Positive for congestion. Negative for rhinorrhea. Respiratory: Negative for cough and shortness of breath. Cardiovascular: Negative for chest pain, palpitations and leg swelling. Gastrointestinal: Negative for abdominal pain, diarrhea, nausea and vomiting. Genitourinary: Negative for dysuria and frequency. Neurological: Positive for numbness. Negative for dizziness, light-headedness and headaches. Allergies Allergen Reactions Tape Other Redness Outpatient Medications Prior to Visit Medication Sig Dispense Refill ascorbic acid (Vitamin C) 500 MG tablet Take 500 mg by mouth in the morning and 500 mg in the evening. Aspirin Low Dose 81 MG EC tablet Take 81 mg by mouth daily. atorvastatin (Lipitor) 20 MG tablet Take 20 mg by mouth daily. chlorthalidone (Hygroton) 25 MG tablet Take 25 mg by mouth daily. Cinnamon 500 MG tablet Take by mouth. co-enzyme Q-10 30 MG capsule Take 30 mg by mouth daily. latanoprost (Xalatan) 0.005 % ophthalmic solution apply 1 (ONE) drop into both eyes every morning Multiple Vitamin (MULTIVITAMIN ADULT PO) Take 1 capsule by mouth in the morning. OMEGA-3 FATTY ACIDS-VITAMIN E PO Take 1 capsule by mouth. gabapentin (Neurontin) 100 MG capsule Take 1 capsule (100 mg) by mouth 3 times daily. 90 capsule 5 lisinopril 20 MG tablet Take 20 mg by mouth daily. metoprolol tartrate (Lopressor) 25 MG tablet Take 25 mg by mouth 3 times daily. brimonidine (AlphaGAN P) 0.2 % ophthalmic solution Administer into affected eye(s). tiZANidine (Zanaflex) 4 MG capsule Take 4 mg by mouth. No facility-administered medications prior to visit. History reviewed. No pertinent past medical history. Past Surgical History: Procedure Laterality Date ELBOW SURGERY Right SPINAL CORD DECOMPRESSION 05/29/2022 TOE SURGERY Right UMBILICAL HERNIA REPAIR 2013 No family history on file. Social History Tobacco Use Smoking status: Every Day Packs/day: 1.00 Years: 47.00 Additional pack years: 0.00 Total pack years: 47.00 Types: Cigarettes Start date: 1975 Passive exposure: Current Smokeless tobacco: Never Substance Use Topics Alcohol use: Yes Comment: occ Objective BP (!) 151/72 Pulse (!) 48 Temp 37 C (98.6 F) (Temporal) Ht 5' 11 (1.803 m) Wt 291 lb (132 kg) SpO2 97% BMI 40.59 kg/m Physical Exam Constitutional: General: He is not in acute distress. Appearance: Normal appearance. He is not ill-appearing. HENT: Head: Normocephalic and atraumatic. Eyes: Extraocular Movements: Extraocular movements intact. Conjunctiva/sclera: Conjunctivae normal. Cardiovascular: Rate and Rhythm: Normal rate and regular rhythm. Pulses: Normal pulses. Heart sounds: Normal heart sounds. Pulmonary: Effort: Pulmonary effort is normal. Breath sounds: Normal breath sounds. Neurological: Mental Status: He is alert. Psychiatric: Mood and Affect: Mood normal. Behavior: Behavior normal. Thought Content: Thought content normal. Judgment: Judgment normal. Data Reviewed and Summarized: Medical decision making including: See assessment an plan. Goals None [facility] Mamadou Armijo MD documented in this encounter [facility] 06-12-2023 Miscellaneous Notes Addended by: MAMADOU ARMIJO on: 06/18/2023 03:19 PM Modules accepted: Level of Service documented in this encounter [facility] 06-12-2023 Note Addended by: MAMADOU ARMIJO on: 06/18/2023 03:19 PM Modules accepted: Level of Service [facility] 05-26-2023 Telephone encounter Note I defer to you to decide if it's worth continuing the gabapentin. [facility] [employer] Work Phone: 05-26-2023 Miscellaneous Notes I defer to you to decide if it's worth continuing the gabapentin. Spoke with pt advising message Pt has gone more days without pain then with while taking gabapentin Pt will start wearing a brace during the day He currently wears one at night If the med it's working, then I'm not sure there is a point to refilling the Rx. So no I will no refill. This is a direct contradiction to the prior message. Name of caller: Víctor Contact phone number: [phone] Relationship to Patient: patient Provider: Aleksander Practice: [place] Chief Complaint/Reason for Call: Patient requesting refill of gabapentin (Neurontin). In reference to 05/19 TE, pt was advised to increase dose to 300 mg TID. Therefore, pt is going to run out early and is requesting a prescription with the new dose be sent to [facility]. Patient will be out of medication Friday. Please advise. Best time of day caller can be reached: any Patient advised that office/PCP has 24-48 business hours to return their call: Yes documented in this encounter [employer] 05-23-2023 Telephone encounter Note Spoke with pt advising message Pt has gone more days without pain then with while taking gabapentin Pt will start wearing a brace during the day He currently wears one at night [employer] 05-23-2023 Telephone encounter Note If the med it's working, then I'm not sure there is a point to refilling the Rx. So no I will no refill. This is a direct contradiction to the prior message. [employer] 05-23-2023 Telephone encounter Note Name of caller: Víctor Contact phone number: [phone] Relationship to Patient: patient Provider: Aleksander Practice: [place] Chief Complaint/Reason for Call: Patient requesting refill of gabapentin (Neurontin). In reference to 05/19 TE, pt was advised to increase dose to 300 mg TID. Therefore, pt is going to run out early and is requesting a prescription with the new dose be sent to [facility]. Patient will be out of medication Friday. Please advise. Best time of day caller can be reached: any Patient advised that office/PCP has 24-48 business hours to return their call: Yes [employer] 05-15-2023 Note [facility] Neurology Lab EMG/NCS report: Patient: Víctor Lagos AGE: 62 y.o. Handedness: Right Gender: Male Referring physician: Mamadou Armijo MD Study date: 05/15/23 Reason for referral: Patient presents with pain, numbness, paresthesia and tingling in the arms and hands bilaterally. EMG/nerve conduction study of the bilateral upper extremities is done to evaluate for mononeuropathy affecting the right or left upper extremity versus right or left cervical radiculopathy. Summary: The left median sensory nerve action potential was absent. The right median sensory nerve action potential was absent. The left ulnar sensory nerve action potential was unremarkable. The right ulnar sensory nerve action potential was unremarkable for age and BMI. The left radial sensory nerve action potential was unremarkable. The right radial sensory nerve action potential was unremarkable. The left median to APB compound muscle action potential was remarkable for a prolonged distal latency and a decreased conduction velocity. The right median to APB compound muscle action potential was remarkable for a prolonged distal latency. The left ulnar to ADM compound muscle action potential was unremarkable. The right ulnar to ADM compound muscle action potential was remarkable for a decreased conduction velocity across the elbow segment. The left ulnar to FDI compound muscle action potential was unremarkable. The right ulnar to FDI compound muscle action potential was remarkable for decreased conduction velocity across the elbow segment. The left median to ulnar lumbrical interossei comparison study was remarkable for a prolonged median distal latency compared to its ulnar counterpart. The right median to ulnar lumbrical interossei comparison study was remarkable for a prolonged median distal latency compared to its ulnar counterpart. Concentric needle EMG was performed in the bilateral upper extremities. No increased insertional activity, fibrillation potentials, fasciculation potentials or positive sharp waves were seen in any muscle tested. Motor unit action potentials demonstrated increased amplitude, duration and reduced recruitment in the right first dorsal interosseous. All other muscles tested demonstrated normal morphology and firing pattern throughout. Impression: This is an abnormal study. 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 carpal tunnel syndrome, which is moderate to severe in severity electrophysiologically bilaterally and is slightly worse on the right side. 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 There is no evidence of a right or left-sided cervical radiculopathy on this study. All normal values/reference values for this study were taken from the [facility] reference values. This dictation was done by using the [employer] dictation system. It has been proofread but still may contain unrecognized voice recognition errors. [facility] 05-15-2023 Procedure note Associated Ord er(s): NERVE CONDUCTION TEST WITH EMG [email or web address] Neurology Lab EMG/NCS report: Patient: Víctor Lagos AGE: 62 y.o. Handedness: Right Gender: Male Referring physician: Mamadou Armijo MD Study date: 05/15/23 Reason for referral: Patient presents with pain, numbness, paresthesia and tingling in the arms and hands bilaterally. EMG/nerve conduction study of the bilateral upper extremities is done to evaluate for mononeuropathy affecting the right or left upper extremity versus right or left cervical radiculopathy. Summary: The left median sensory nerve action potential was absent. The right median sensory nerve action potential was absent. The left ulnar sensory nerve action potential was unremarkable. The right ulnar sensory nerve action potential was unremarkable for age and BMI. The left radial sensory nerve action potential was unremarkable. The right radial sensory nerve action potential was unremarkable. The left median to APB compound muscle action potential was remarkable for a prolonged distal latency and a decreased conduction velocity. The right median to APB compound muscle action potential was remarkable for a prolonged distal latency. The left ulnar to ADM compound muscle action potential was unremarkable. The right ulnar to ADM compound muscle action potential was remarkable for a decreased conduction velocity across the elbow segment. The left ulnar to FDI compound muscle action potential was unremarkable. The right ulnar to FDI compound muscle action potential was remarkable for decreased conduction velocity across the elbow segment. The left median to ulnar lumbrical interossei comparison study was remarkable for a prolonged median distal latency compared to its ulnar counterpart. The right median to ulnar lumbrical interossei comparison study was remarkable for a prolonged median distal latency compared to its ulnar counterpart. Concentric needle EMG was performed in the bilateral upper extremities. No increased insertional activity, fibrillation potentials, fasciculation potentials or positive sharp waves were seen in any muscle tested. Motor unit action potentials demonstrated increased amplitude, duration and reduced recruitment in the right first dorsal interosseous. All other muscles tested demonstrated normal morphology and firing pattern throughout. Impression: This is an abnormal study. 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 carpal tunnel syndrome, which is moderate to severe in severity electrophysiologically bilaterally and is slightly worse on the right side. 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 There is no evidence of a right or left-sided cervical radiculopathy on this study. All normal values/reference values for this study were taken from the [facility] reference values. This dictation was done by using the [employer] dictation system. It has been proofread but still may contain unrecognized voice recognition errors. [place] Phone: 05-15-2023 Procedure note Associated Ord er(s): NERVE CONDUCTION TEST WITH EMG DLS Neurology Lab EMG/NCS report: Patient: Víctor Lagos AGE: 62 y.o. Handedness: Right Gender: Male Referring physician: Mamadou Armijo MD Study date: 05/15/23 Reason for referral: Patient presents with pain, numbness, paresthesia and tingling in the arms and hands bilaterally. EMG/nerve conduction study of the bilateral upper extremities is done to evaluate for mononeuropathy affecting the right or left upper extremity versus right or left cervical radiculopathy. Summary: The left median sensory nerve action potential was absent. The right median sensory nerve action potential was absent. The left ulnar sensory nerve action potential was unremarkable. The right ulnar sensory nerve action potential was unremarkable for age and BMI. The left radial sensory nerve action potential was unremarkable. The right radial sensory nerve action potential was unremarkable. The left median to APB compound muscle action potential was remarkable for a prolonged distal latency and a decreased conduction velocity. The right median to APB compound muscle action potential was remarkable for a prolonged distal latency. The left ulnar to ADM compound muscle action potential was unremarkable. The right ulnar to ADM compound muscle action potential was remarkable for a decreased conduction velocity across the elbow segment. The left ulnar to FDI compound muscle action potential was unremarkable. The right ulnar to FDI compound muscle action potential was remarkable for decreased conduction velocity across the elbow segment. The left median to ulnar lumbrical interossei comparison study was remarkable for a prolonged median distal latency compared to its ulnar counterpart. The right median to ulnar lumbrical interossei comparison study was remarkable for a prolonged median distal latency compared to its ulnar counterpart. Concentric needle EMG was performed in the bilateral upper extremities. No increased insertional activity, fibrillation potentials, fasciculation potentials or positive sharp waves were seen in any muscle tested. Motor unit action potentials demonstrated increased amplitude, duration and reduced recruitment in the right first dorsal interosseous. All other muscles tested demonstrated normal morphology and firing pattern throughout. Impression: This is an abnormal study. 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 carpal tunnel syndrome, which is moderate to severe in severity electrophysiologically bilaterally and is slightly worse on the right side. 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 There is no evidence of a right or left-sided cervical radiculopathy on this study. All normal values/reference values for this study were taken from the [facility] reference values. This dictation was done by using the [employer] dictation system. It has been proofread but still may contain unrecognized voice recognition errors. documented in this encounter [facility] 05-08-2023 History of Present illness Narrative Images from the original note were not included. [facility] [address] [facility] [address] Dept: [phone] Dept Loc: [phone] 05/08/2023 Visit type: new patient Reason for Visit: Establish Care and New Patient (New pt is here today to establish care and discuss possible neuropathy. Pt reports spinal decompression surgery last May, having numbness and tingling to bilateral hands, arms, shoulders.Also reports right hip leg numbness and tingling. Having trouble sleeping d/t pain) ASSESSMENT/PLAN 1. Numbness and tingling of both upper extremities - Nerve conduction test with EMG - CBC - Vitamin B12 - TSH - Comprehensive metabolic panel - XR cervical spine 2 or 3 views - XR shoulder 2+ views left - XR wrist 3+ views right Follow up in about 4 weeks (around 06/05/2023) for gabapentin follow up. Subjective Patient: Víctor Lagos is a 62 y.o. male HPI Patient has history known spine disease and had lumbar spinal decompression by orthopedic spine last May He has had numbness, tingling of bilateral upper extremities from shoulder to fingertips for the past several months, had similar issues in past with bilateral lower extremities prior to spinal decompression. Denies recent trauma. Numbness and tingling is worse in morning and interferes with daily activities. Reviewed benefits and risks of gabapentin. PDMP reviewed pain contract signed, UDS performed Review of Systems Constitutional: Negative for chills, fatigue and fever. HENT: Negative for congestion and rhinorrhea. Respiratory: Negative for cough and shortness of breath. Cardiovascular: Negative for chest pain, palpitations and leg swelling. Gastrointestinal: Negative for abdominal pain, diarrhea, nausea and vomiting. Genitourinary: Negative for dysuria and frequency. Musculoskeletal: Positive for arthralgias and back pain. Neurological: Positive for numbness. Negative for dizziness, light-headedness and headaches. Allergies Allergen Reactions Tape Other Redness Outpatient Medications Prior to Visit Medication Sig Dispense Refill ascorbic acid (Vitamin C) 500 MG tablet Take 500 mg by mouth in the morning and 500 mg in the evening. Aspirin Low Dose 81 MG EC tablet Take 81 mg by mouth daily. atorvastatin (Lipitor) 20 MG tablet Take 20 mg by mouth daily. chlorthalidone (Hygroton) 25 MG tablet Take 25 mg by mouth daily. Cinnamon 500 MG tablet Take by mouth. co-enzyme Q-10 30 MG capsule Take 30 mg by mouth daily. latanoprost (Xalatan) 0.005 % ophthalmic solution apply 1 (ONE) drop into both eyes every morning lisinopril 20 MG tablet Take 20 mg by mouth daily. metoprolol tartrate (Lopressor) 25 MG tablet Take 25 mg by mouth 3 times daily. Multiple Vitamin (MULTIVITAMIN ADULT PO) Take 1 capsule by mouth in the morning. [place]ME[place]-3 FATTY ACIDS-VITAMIN E PO Take 1 capsule by mouth. brimonidine (AlphaGAN P) 0.2 % ophthalmic solution Administer 1 drop into both eyes 2 times daily. erythromycin (Romycin) 5 MG/GM ophthalmic ointment APPLY TO BOTH EYES AT BEDTIME DIRECTED moxifloxacin (Vigamox) 0.5 % ophthalmic solution Instill 1 drop into right eye four times a day as directed oxyCODONE-acetaminophen (Percocet) 5-325 MG tablet Take 1 tablet by mouth every 6 hours as needed. prednisoLONE acetate (Pred-Forte) 1 % ophthalmic suspension Instill 1 drop into both eyes four times a day as directed No facility-administered medications prior to visit. History reviewed. No pertinent past medical history. Past Surgical History: Procedure Laterality Date ELBOW SURGERY Right SPINAL CORD DECOMPRESSION 05/29/2022 TOE SURGERY Right UMBILICAL HERNIA REPAIR 2013 No family history on file. Social History Tobacco Use Smoking status: Every Day Packs/day: 1.00 Years: 47.00 Additional pack years: 0.00 Total pack years: 47.00 Types: Cigarettes Start date: 1975 Passive exposure: Current Smokeless tobacco: Never Substance Use Topics Alcohol use: Yes Comment: occ Objective BP 136/76 (BP Location: Right arm, Patient Position: Sitting, BP Cuff Size: Adult) Pulse 80 Temp 36.2 C (97.1 F) (Temporal) Ht 5' 11 (1.803 m) Wt 278 lb (126 kg) SpO2 96% BMI 38.77 kg/m Physical Exam Constitutional: General: He is not in acute distress. Appearance: Normal appearance. He is not ill-appearing. HENT: Head: Normocephalic and atraumatic. Eyes: Extraocular Movements: Extraocular movements intact. Conjunctiva/sclera: Conjunctivae normal. Cardiovascular: Rate and Rhythm: Normal rate and regular rhythm. Pulmonary: Effort: Pulmonary effort is normal. Breath sounds: Normal breath sounds. Musculoskeletal: Cervical back: Spasms and tenderness present. No swelling or bony tenderness. Normal range of motion. Neurological: Mental Status: He is alert. Psychiatric: Mood and Affect: Mood normal. Behavior: Behavior normal. Thought Content: Thought content normal. Judgment: Judgment normal. Data Reviewed and Summarized: Medical decision making including: See assessment an plan. Goals None [facility] Mamadou Armijo MD documented in this encounter [facility] 05-08-2023 History of Present illness Narrative Images from the original note were not included. [facility] [address] [facility] [address] Dept: [phone] Dept Loc: [phone] 05/08/2023 Visit type: new patient Reason for Visit: Establish Care and New Patient (New pt is here today to establish care and discuss possible neuropathy. Pt reports spinal decompression surgery last May, having numbness and tingling to bilateral hands, arms, shoulders.Also reports right hip leg numbness and tingling. Having trouble sleeping d/t pain) ASSESSMENT/PLAN 1. Numbness and tingling of both upper extremities - Nerve conduction test with EMG - gabapentin (Neurontin) 100 MG capsule; Take 1 capsule (100 mg) by mouth 3 times daily., Starting Ailyn 05/08/2023, Until 11/04/2023, Normal - CBC - Vitamin B12 - TSH - Comprehensive metabolic panel - XR cervical spine 2 or 3 views - XR shoulder 2+ views left - XR wrist 3+ views right Follow up in about 4 weeks (around 06/05/2023) for gabapentin follow up. Subjective Patient: Víctor Lagos is a 62 y.o. male HPI Patient has history known spine disease and had lumbar spinal decompression by orthopedic spine last May He has had numbness, tingling of bilateral upper extremities from shoulder to fingertips for the past several months, had similar issues in past with bilateral lower extremities prior to spinal decompression. Denies recent trauma. Numbness and tingling is worse in morning and interferes with daily activities. Reviewed benefits and risks of gabapentin. PDMP reviewed pain contract signed, UDS performed Review of Systems Constitutional: Negative for chills, fatigue and fever. HENT: Negative for congestion and rhinorrhea. Respiratory: Negative for cough and shortness of breath. Cardiovascular: Negative for chest pain, palpitations and leg swelling. Gastrointestinal: Negative for abdominal pain, diarrhea, nausea and vomiting. Genitourinary: Negative for dysuria and frequency. Musculoskeletal: Positive for arthralgias and back pain. Neurological: Positive for numbness. Negative for dizziness, light-headedness and headaches. Allergies Allergen Reactions Tape Other Redness Outpatient Medications Prior to Visit Medication Sig Dispense Refill ascorbic acid (Vitamin C) 500 MG tablet Take 500 mg by mouth in the morning and 500 mg in the evening. Aspirin Low Dose 81 MG EC tablet Take 81 mg by mouth daily. atorvastatin (Lipitor) 20 MG tablet Take 20 mg by mouth daily. chlorthalidone (Hygroton) 25 MG tablet Take 25 mg by mouth daily. Cinnamon 500 MG tablet Take by mouth. co-enzyme Q-10 30 MG capsule Take 30 mg by mouth daily. latanoprost (Xalatan) 0.005 % ophthalmic solution apply 1 (ONE) drop into both eyes every morning lisinopril 20 MG tablet Take 20 mg by mouth daily. metoprolol tartrate (Lopressor) 25 MG tablet Take 25 mg by mouth 3 times daily. Multiple Vitamin (MULTIVITAMIN ADULT PO) Take 1 capsule by mouth in the morning. OMEGA-3 FATTY ACIDS-VITAMIN E PO Take 1 capsule by mouth. brimonidine (AlphaGAN P) 0.2 % ophthalmic solution Administer 1 drop into both eyes 2 times daily. erythromycin (Romycin) 5 MG/GM ophthalmic ointment APPLY TO BOTH EYES AT BEDTIME DIRECTED moxifloxacin (Vigamox) 0.5 % ophthalmic solution Instill 1 drop into right eye four times a day as directed oxyCODONE-acetaminophen (Percocet) 5-325 MG tablet Take 1 tablet by mouth every 6 hours as needed. prednisoLONE acetate (Pred-Forte) 1 % ophthalmic suspension Instill 1 drop into both eyes four times a day as directed No facility-administered medications prior to visit. History reviewed. No pertinent past medical history. Past Surgical History: Procedure Laterality Date ELBOW SURGERY Right SPINAL CORD DECOMPRESSION 05/29/2022 TOE SURGERY Right UMBILICAL HERNIA REPAIR 2013 No family history on file. Social History Tobacco Use Smoking status: Every Day Packs/day: 1.00 Years: 47.00 Additional pack years: 0.00 Total pack years: 47.00 Types: Cigarettes Start date: 1975 Passive exposure: Current Smokeless tobacco: Never Substance Use Topics Alcohol use: Yes Comment: occ Objective BP 136/76 (BP Location: Right arm, Patient Position: Sitting, BP Cuff Size: Adult) Pulse 80 Temp 36.2 C (97.1 F) (Temporal) Ht 5' 11 (1.803 m) Wt 278 lb (126 kg) SpO2 96% BMI 38.77 kg/m Physical Exam Constitutional: General: He is not in acute distress. Appearance: Normal appearance. He is not ill-appearing. HENT: Head: Normocephalic and atraumatic. Eyes: Extraocular Movements: Extraocular movements intact. Conjunctiva/sclera: Conjunctivae normal. Cardiovascular: Rate and Rhythm: Normal rate and regular rhythm. Pulmonary: Effort: Pulmonary effort is normal. Breath sounds: Normal breath sounds. Musculoskeletal: Cervical back: Spasms and tenderness present. No swelling or bony tenderness. Normal range of motion. Neurological: Mental Status: He is alert. Psychiatric: Mood and Affect: Mood normal. Behavior: Behavior normal. Thought Content: Thought content normal. Judgment: Judgment normal. Data Reviewed and Summarized: Medical decision making including: See assessment an plan. Goals None [facility] Mamadou Armijo MD documented in this encounter [facility] 05-08-2023 Instructions Mamadou Armijo MD - 05/08/2023 2:20 PM EST The following attachments cannot be sent through Care Everywhere.Gabapentin, ADULT ([place])Neck Stretches ([place])documented in this encounter [facility] 05-08-2023 Instructions Mamadou Armijo MD - 05/08/2023 2:20 PM EST The following attachments cannot be sent through Care Everywhere.Gabapentin, ADULT ([place])Neck Stretches ([place])documented in this encounter [facility] 05-08-2023 Miscellaneous Notes Normal labs documented in this encounter [facility] 05-08-2023 Miscellaneous Notes Normal labs documented in this encounter [facility] 05-08-2023 Progress note Formatting of t his note might be different from the original. Normal labs [facility] 03-19-2023 Note HNO ID: [id number] Author: Dafne Ruby APRN.[employer] Service: ? Author Type: Nurse Practitioner Type: Progress Notes Filed: 03/19/2023 4:52 PM Note Text: Subjective Cough Associated symptoms include headaches. Pertinent negatives include no chest pain, no chills, no ear pain, no sore throat and no shortness of breath. Víctor Lagos is a 62 year old male who [...] Take 81 mg by mouth once daily. [place]-3 Fatty Acids-Vitamin E (FISH OIL) 1,000 mg [...] Discussed expected course of illness Dafne Ruby APRN.[facility] Diagnosis Numbness and tingling of both upper extremities- Primary [facility] Diagnosis Numbness and tingling of both upper extremities- Primary Numbness and tingling of both upper extremities [facility] Diagnosis Numbness and tingling of both upper extremities [facility]* Diagnosis Essential hypertension- Primary Unspecified essential hypertension Numbness and tingling of both upper extremities Nasal congestion Other diseases of nasal cavity and sinuses [facility] Diagnosis Essential hypertension Unspecified essential hypertension [facility] Diagnosis Numbness and tingling of both upper extremities documented in this encounter [facility] Summary Purpose Family History No Family History Records FoundNo Family History Records Found Advance Directives No Advanced Directives Records FoundNo Advanced Directives Records Found Reason for Referral Specialty Diagnoses / Procedures Referred By Sophia wynn Referred To Contact Neurology Diagnoses Numbness and tingling of both upper extremities Procedures Nerve conduction test with EMG Mamadou Armijo MD [address] [address] Referral ID Status Reason Start Date Expiration Date V isits Requested Visits Authorized [id number] Authorized 05/08/2023 05/02/2024 1 1 Referral ID Status Reason Start Date Expiration Date Visits Re quested Visits Authorized [id number] Closed 05/08/2023 05/02/2024 1 1 Additional Source Comments (unrecognized sect ion and content) No Status Records FoundNo Status Records Found INFORMATION SOURCE (unrecogn ized section and content) DATE CREATED AUTHOR AUTHOR'S ORGANIZ ATION 07/03/2023 [facility] Care Teams (unrecognized sec tion and content) Records Analyst Relationship Specialty Start Date End Date Mamadou Armijo MD [address] [place] [address] PCP - General Internal Medicine 05/08/23 Records Analyst Relationship Specialty Start Date End Date Mamadou Armijo MD [address] [place] [address] PCP - General Internal Medicine 05/08/23 Records Analyst Relationship Specialty Start Date End Date Mamadou Arimjo MD [address] [place] [address] PCP - General Internal Medicine 05/08/23 Records Analyst Relationship Specialty Start Date End Date Mamadou Armijo MD [address] [place] [address] PCP - General Internal Medicine 05/08/23 Records Analyst Relationship Specialty Start Date End Date Mamadou Armijo MD [address] [place] [address] PCP - General Internal Medicine 05/08/23 Records Analyst Relationship Specialty Start Date End Date Mamadou Armijo MD [address] [place] [address] PCP - General Internal Medicine 05/08/23 Reason for Visit (unrecogniz ed section and content) Specialty Diagnoses / Procedures Referred By Contac t Referred To Contact Neurology Diagnoses Numbness and tingling of both upper extremities Procedures Nerve conduction test with EMG Mamadou Armijo MD [address] [place] [address] Referral ID Status Reason Start Date Expiration Date Visits Re quested Visits Authorized [id number] Closed 05/08/2023 05/02/2024 1 1 Reason Comments Follow-up Pt is here for a fol low up, numbness and tingling to bilat upper extremities. Pt reports symptoms are worse. Continues to take Gabapentin with minimal relief (taking 100mg) Reason Comments Follow-up BP check Reason Onset Date Comments Med Refill 05/23/2023 FOR RECORDS PERTAINING TO PATIENTS WHO ARE [...] BE BASED ON THE PRIMARY CLINICAL RECORDS. [employer] provides no warranty or guarantee of the accuracy or completeness of information in this document.
[2023-07-16] MEDS: Lactated Ringers 1,000 ML 15 ML IV (07:04)
--- NOTE | 2023-07-16 07:09 | PCM.HP.STD ---
HPI - General HPI Narrative BILLY LAGOS, is a 63 M who presents for bilateral endoscopic carpal tunnel release. No changes to h and p. OK to proceed. RAB and post op instructions give. Bilat wrists marked. MR#: [id number] Acct: [id number] Name: BILLY LAGOS Rep #: [id number] : 1960 Provider: Dr. Richy Nayak MD Age/Sex: 62/M [place] [facility] [place] Status: Signed Intake Vital Signs 05/27/2313:00 Height 6 ft Intake Visit Reasons: BL HANDS Chief Complaint: BL wrist/hands Is patient in pain?: Yes Allergies adhesive tape [tape] Allergy (Verified 06/23/23 15:51) Rash Medications aspirin 81 mg chewable tablet 81 mg PO DAILY@0800 02/21/16 [History Confirmed 06/23/23] atorvastatin 10 mg tablet 10 mg PO QHS 02/21/16 [History Confirmed 06/23/23] lisinopril 20 mg tablet 20 mg PO DAILY 02/21/16 [History Confirmed 06/23/23] metoprolol tartrate 25 mg tablet 25 mg PO BID 02/21/16 [History Confirmed 06/23/23] multivitamin (Daily Multiple tablet) 1 ea PO DAILY 02/21/16 [History Confirmed 06/23/23] ascorbate calcium (vitamin C) 500 mg tablet 500 mg PO DAILY 10/20/20 [History Confirmed 06/23/23] chlorthalidone 25 mg tablet 12.5 - 25 mg PO DAILY PRN hypertension 10/20/20 [History Confirmed 06/23/23] cholecalciferol (vitamin D3) 50 mcg (2,000 unit) capsule 50 mcg PO DAILY 10/20/20 [History Confirmed 06/23/23] cinnamon bark 500 mg capsule (Cinnamon) 500 mg PO DAILY 10/20/20 [History Confirmed 06/23/23] omega-3 fatty acids 1,000 mg capsule (Fish Oil Concentrate) 1,000 mg PO DAILY 10/20/20 [History Confirmed 06/23/23] brimonidine 0.2 % eye drops 2 drp EACH EYE BID 05/27/22 [History Confirmed 06/23/23] latanoprost 0.005 % eye drops 1 drp EACH EYE QHS 05/27/22 [History Confirmed 06/23/23] gabapentin 100 mg capsule 300 mg PO TID 06/23/23 [History Confirmed 06/23/23] [facility] Medical History Alcohol use Back pain Bilateral carpal tunnel syndrome CPAP (continuous positive airway pressure) dependence High cholesterol History of echocardiogram History of pain when walking History of stress test Hypertension Left shoulder pain Leg cramps Right shoulder pain Shortness of breath on exertion Smoker Wears glasses Surgical History Hammer toe History of elbow surgery History of hernia repair Family History Mother Diabetes ArthritisFather Myocardial infarction Social History household members: children Smoking Status: Current every day smoker tobacco type: cigarettes Electronic Cigarette Use: not used second hand exposure: No alcohol intake: current alcohol intake frequency: other details: 2-3 Drinks per day substance use type: does not use HPI BL HANDS Details: This documentation accurately reflects the service provided and the decisions made by me, Dr. Richy Nayak MD 06/23/23 1128. Part of today?s visit was documented by [ ], acting as scribe. BILLY LAGOS is a 62 year old M here today for follow-up review of bilateral nerve conduction studies for bilateral carpal tunnel syndrome. The patient has numbness and tingling its progressively worse and now there all the time in the thumb index middle as well as the radial border of the fourth digit. He never in the fifth digit. Patient has very rare sensations going down from the elbow down the forearm lasting a couple seconds and only with bumping the elbow. The problem in the hands is becoming more severe despite nighttime splinting. Ortho Exam General General: Yes no acute distress Neurologic: Yes alert and Yes oriented x3 Psychologic: Yes reasonable and appropriate Right Wrist/Hand Skin/Wound: Yes CDI, No Swelling, No Ecchymosis, Yes nail intact and Yes capillary refill normal Right Wrist: Yes ROM-Extension 0-60, ROM-Flexion 0-80, ROM-Pronation 0-80, ROM-Supination 0-90, Durken's Test, Phalen's and Thenar Atrophy; No Tinel's or Hypothenar Atrophy Motor: EPL: 5, FDP-2: 5, 1st Dorsal Interosseous: 5 and APB: 5 Sensation: Radial: I, Ulnar: I and Median: D WRIST: neg tinel and compression at the elbow strong 5th finger adduction and abduction, neg wartenburg bilat. 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 I have asked Sarai to scan these results into the chart. Coding Level of Care Code Off vis,est,level 5 Diagnoses Bilateral carpal tunnel syndrome G56.03 Assessment and Plan Assessment and Plan (1) Bilateral carpal tunnel syndrome: Status: Acute Plan: 62-year-old man with evidence of moderate to severe bilateral carpal tunnel syndrome. No clinical evidence of cubital tunnel syndrome although mild evidence on the nerve conduction studies. We discussed the diagnosis pros and cons risks and benefits of the surgery versus nonoperative means this can become worse or more permanent with time and it is certainly moderate to severe with subjective sensations there all the time therefore the patient does want to go ahead with surgical release. We discussed the pros and cons risks and benefits of open versus endoscopic as well as recovery associated with this 2 weeks to heal the incision avoiding heavy lifting or gripping for the first 6 weeks. Would recommend to wait on cubital tunnel release given rare symptomatology of that. The patient wants to go ahead with bilateral endoscopic carpal tunnel release and we booked and consented for the surgery today. Patient smoke 1ppd counselled on quitting and increased risks. Pros and cons risks and benefits were discussed with the patient including but not limited to infection, pain, stiffness, bleeding, damage to surrounding structures, neurovascular injury, recurrence or retear, failure or wear of hardware or fixation, instability, fracture, deep vein thrombosis and pulmonary embolism, anesthetic risks, , patient dissatisfaction, need for further surgery and other risks. Patient understood and wished to proceed with surgery, and signed the informed consent documentation. [facility] Medical History (Updated 07/04/23 @ 08:17 by Mesha Pedro) Alcohol use Arthritis Back pain Bilateral carpal tunnel syndrome CPAP (continuous positive airway pressure) dependence Heartburn High cholesterol History of echocardiogram History of pain when walking History of stress test Hypertension Left shoulder pain Leg cramps Right shoulder pain Shortness of breath on exertion Smoker Wears glasses Home Medications aspirin 81 mg chewable tablet 81 mg PO DAILY@0800 02/21/16 [History Last Taken 07/12/23] atorvastatin 10 mg tablet 10 mg PO QHS 02/21/16 [History Last Taken 07/15/23] lisinopril 20 mg tablet 40 mg PO QHS 02/21/16 [History Last Taken 07/15/23] multivitamin (Daily Multiple tablet) 1 ea PO DAILY 02/21/16 [History Last Taken 07/15/23] ascorbate calcium (vitamin C) 500 mg tablet 500 mg PO DAILY 10/20/20 [History Last Taken 07/15/23] chlorthalidone 25 mg tablet 12.5 - 25 mg PO DAILY PRN hypertension 10/20/20 [History Last Taken 07/15/23] cinnamon bark 500 mg capsule (Cinnamon) 500 mg PO DAILY 10/20/20 [History Last Taken 07/15/23] omega-3 fatty acids 1,000 mg capsule (Fish Oil Concentrate) 1,000 mg PO DAILY 10/20/20 [History Last Taken 07/15/23] latanoprost 0.005 % eye drops 1 drp EACH EYE QHS 05/27/22 [History Last Taken 07/15/23] gabapentin 100 mg capsule 300 mg PO TID 06/23/23 [History Last Taken 07/15/23] timolol 0.25 % eye drops (Betimol) 1 drp EACH EYE BID 07/04/23 [History Last Taken 07/15/23] Allergy/AdvReac Type Severity Reaction Status Date / Time adhesive tape [tape] Allergy Rash Verified 07/16/23 07:02 Family History Mother Diabetes Arthritis Father Myocardial infarction Surgical History (Updated 07/04/23 @ 08:08 by Mesha Pedro) Hammer toe History of colonoscopy History of elbow surgery History of hernia repair History of lumbar laminectomy Social History household members: children Smoking Status: Current every day smoker tobacco type: cigarettes Electronic Cigarette Use: not used second hand exposure: No alcohol intake: current alcohol intake frequency: other details: 2-3 Drinks per day substance use type: does not use Vital Signs Vital Signs Vital Signs: 07/16/23 07:05 07/16/23 07:05 Temperature 97.9 F Temperature Source Temporal Pulse Rate 94 Respiratory Rate 17 Respiratory Pattern Normal Blood Pressure 127/78 H Blood Pressure Mean 94 Blood Pressure Source Monitor Blood Pressure Position Semi-Fowlers Blood Pressure Location Left Arm Pulse Ox 97 Oxygen Delivery Method Room Air Weight Weight: 285 lb 11.505 oz Body Mass Index (BMI) 39.8
[2023-07-16] MEDS: Cefazolin 3 GM in 0.9% Normal Saline (100mL Bag) 100 ML IV (07:47)
[2023-07-16] MEDS: Bupivacaine 0.25% 30 ML Vial (08:11)
--- NOTE | 2023-07-16 08:44 | OP.PCM_ITS ---
Problems Associated Problem List Diagnoses (1) Bilateral carpal tunnel syndrome: Report of Operation Date of Procedure: 07/16/23 Pre-Operative Diagnosis: bilat carpal tunnel syndrome Post-Operative Diagnosis: same Surgery/Procedure Performed:: bilateral endoscopic carpal tunnel release Surgeon: Richy Nayak Type of Anesthesia: General and Local Anesthesiologist: Ashish Moreno Estimated Blood Loss (mL): 10 Description of Procedure: Patient was brought to the operating room theater.? The patient was administered 2g iv ancef prior to the start of the procedure.? Placed supine on the operating room table.? Anesthesia induced.? SCDs on the legs.? Tourniquet applied to both upper operative extremity, appropriately padded. Arm table used. Operative extremity prepped and draped in the usual sterile fashion with chlorhexidine- based prep solution allowing over 3 minutes drying time prior to draping.? Preoperative timeout performed to confirm the site patient and the surgery. I did the same procedure on both sides. I used the [employer] center line endoscopic carpal tunnel kit / technique. 5 cc 0.25% bupivicaine at incision site. ? Tourniquet up at 250mmg. I made a transverse 2 cm incision in line with the? transverse wrist crease.? This was in line with the fourth digit.? I carried the dissection down through skin and subcutaneous tissue achieved meticulous hemostasis. Just ulnar to palmaris tendon.? I incised the antebrachial fascia.? I passed sequential dilators into the carpal tunnel along the radial border of the Guyon's canal aiming for the fourth digit with the hand in extension. I used a synovial elevator to identify the transverse fibers of the transverse carpal tunnel ligament.? Passed the scope into the carpal tunnel. Once I had identified the full proximal and distal extent of the ligament I fully released the ligament under direct visualization by deploying the blade and slowly withdrawing the scope made sequential passes until I no longer felt tension as well as the entire extent of the ligament was released under direct visualization.? Sounded the tunnel with cadena tenotomy scissors, complete release, no bands. Pictures taken and saved before and after release. Tourniquet let down. Wound thoroughly irrigated.?Meticulous hemostasis achieved.? Incisions closed with 3-0 monocryl for the skin.?Skin was cleaned and dried. steri strips, adaptic and 4x4 gauze and jesus wrap. Patient woken up,? transferred off the operating room table and taken to pos tanesthetic care unit in stable condition. All sponge needle instrument counts were correct no complications.? Plan for the patient to be discharged home according to day surgery criteria when they are comfortable. Follow-up in the office in 2 days time. Gentle ROM hand and elbow no heavy lifting. cpt 34025 x2 Complications none Admit VTE Documentation VTE Present on Admission: No VTE Mechan Device Prophylaxis: SCD's VTE Pharm Prophylaxis ordered?: No Reason prophylaxis not ordered:: Treatment Not Indicated Procedures Musculoskeletal [id number]-29xxx: Other Procedure See Report
--- NOTE | 2023-07-16 08:46 | DCINST_ITS ---
Discharge Instructions Diet Discharge Diet: No restrictions Activity Ice area for (Minutes): 10 Lifting Restrictions: ok for hand / wrist rom, no lifting over 5 pounds Keep extremity elevated above heart level: Operative Extremity Dressing / Incision Call your doctor if your incision/area has: Continuous Slow Oozing, Sudden Increased Bleeding, Increased Pain/ Swelling, Increased Redness, Foul Smelling Discharge and Swelling at the incision site Remove Dressing in: leave in place till F/U Follow Up Care Please Follow Up With: Richy Nayak MD When: 2 days Test Results: Test results from this visit will be discussed in further detail at your follow- up appointment, if applicable. Discharge Plan Admission Attending Provider: Richy Nayak Primary Care Provider: Buddy Lara Discharge Orders/Prescriptions Prescriptions: No Action chlorthalidone 25 mg tablet 12.5 - 25 mg PO DAILY PRN (Reason: hypertension) Patient Comments: 1/2 to 1 Tablet daily as needed for elevated blood pressure ascorbate calcium (vitamin C) 500 mg tablet 500 mg PO DAILY omega-3 fatty acids [Fish Oil Concentrate] 1,000 mg capsule 1,000 mg PO DAILY cinnamon bark [Cinnamon] 500 mg capsule 500 mg PO DAILY gabapentin 100 mg capsule 300 mg PO TID Patient Comments: Take 1 capsule (100 mg) by mouth 3 times daily. multivitamin [Daily Multiple] 1 EACH tablet 1 ea PO DAILY atorvastatin 10 MG tablet 10 mg PO QHS lisinopril 20 MG tablet 40 mg PO QHS aspirin 81 MG tablet,chewable 81 mg PO DAILY@0800 Patient Comments: will clarify with Dr Nayak if/when to stop for surgery on 07/15 latanoprost 0.005 % drops 1 drp EACH EYE QHS Betimol 0.25 % drops 1 drp EACH EYE BID Referrals / Follow Up: Buddy Lara MD [Primary Care Provider] - Richy Nayak MD [Med Staff - Active Staff] - Disposition Disposition (needs filled in before D/C Order can be placed): Home, Self Care
== END 2023-07-16 10:41 | disposition home or self-care (01) ==
LOC: SDC 06:35 → AC 06:36
PROVIDERS: PCP Family Medicine; Referring Provider Family Medicine; Visit Provider Orthopaedic Surgery Sports Medicine
PROC: (CPT 29848; principal; 2023-07-16 07:45)
DX: G56.03 Carpal tunnel syndrome, bilateral upper limbs (principal); Z79.82 Long term (current) use of aspirin; I10 Essential (primary) hypertension; F17.210 Nicotine dependence, cigarettes, uncomplicated; E78.00 Pure hypercholesterolemia, unspecified; I35.0 Nonrheumatic aortic (valve) stenosis
CPT/HCPCS: 29848; 01810; J7120